=== PATIENT | male | born 1945 | race Caucasian/White ===

== ENCOUNTER 2016-02-20 16:56 | Emergency (ER) | payer MEDICARE ==
[2016-02-20 17:24] VITALS: BP 147/71; PULSE 81; RESP 16; TEMP 97.5
--- NOTE | 2016-02-20 18:59 | ED ---
Male Urogenital HPI - General Chief complaint: Urogenital Stated complaint: Blood in urine/Diarrhea Time Seen by Provider: 02/20/16 18:26 Source: patient Mode of arrival: ambulatory Limitations: no limitations - History of Present Illness Initial comments: 70-year-old male was at the restaurant started having urgency couldn't urinate pass some blood and then passed a large clot now he can't urinate well. Said trouble says having prostate cancer in 2001. He's had 2 episodes a hematuria one was secondary infection one was secondary to a cyst. His urologist as active, nose. Has had no reoccurrence in his cancer over these 14 years. He's had a previous history of coronary bypass atrial fibrillation was only on aspirin now is maintaining a sinus rhythm with soap 12 - Related Data Home Medications Medication Instructions Recorded Confirmed Albuterol Sulfate [Proair Hfa] 2 puff INHALATION RT-Q6H PRN 06/15/15 02/20/16 Aspirin EC [Ecotrin] 81 mg PO W/SUPPER 06/15/15 02/20/16 Atorvastatin [Lipitor] 40 mg PO HS 06/15/15 02/20/16 Beclomethasone Dipropionate [Qvar 1 puff INHALATION RT-HS 06/15/15 02/20/16 80 mcg/puff] Losartan Potassium [Cozaar] 25 mg PO QAM 06/15/15 02/20/16 Niacin 500 mg PO W/SUPPER 06/15/15 02/20/16 Sotalol [Betapace] 60 mg PO BID 06/15/15 02/20/16 Pantoprazole Sodium [Protonix] 20 mg PO Q48H 02/20/16 02/20/16 Previous Rx's Medication Instructions Recorded Sulfamethox-Tmp 800-160Mg [Bactrim 1 tab PO Q12HR #10 tab 02/20/16 DS 800-160 mg] Allergies Allergy/AdvReac Type Severity Reaction Status Date / Time No Known Allergies Allergy Verified 02/20/16 18:32 Review of Systems ROS Statement: Those systems with pertinent positive or pertinent negative responses have been documented in the HPI. ROS Other: All systems not noted in ROS Statement are negative. Constitutional: Denies: fever, chills Eyes: Denies: eye pain ENT: Denies: ear pain, throat pain Cardiovascular: Denies: chest pain Gastrointestinal: Denies: abdominal pain, nausea, vomiting Genitourinary: Reports: hematuria Skin: Denies: rash Neurological: Denies: headache Psychiatric: Denies: anxiety Hematological/Lymphatic: Denies: easy bleeding, easy bruising Past Medical History Past Medical History: Atrial Fibrillation, Asthma, Cancer, COPD, Hypertension, Prostate Disorder, Skin Disorder, Sleep Apnea/CPAP/BIPAP, Sleep Apnea/CPAP/BIPAP Additional Past Medical History / Comment(s): wound-ball area below great toe bottom of rt foot, hx asbestosis, hx prostate cancer with surgery, chemo and radiation, current herniated disc back History of Any Multi-Drug Resistant Organisms: None Reported Past Surgical History: Cardiac Ablation, Coronary Bypass/CABG, Heart Catheterization, Prostate Surgery Additional Past Surgical History / Comment(s): 2008 heart cath, cardiac ablation , quadruple cardiac bypass. Past Anesthesia/Blood Transfusion Reactions: No Reported Reaction Past Psychological History: No Psychological Hx Reported Smoking Status: Former smoker Past Alcohol Use History: Rare Additional Past Alcohol Use History / Comment(s): smoked 20 years <1ppd, stopped 20 years ago Past Drug Use History: None Reported - Past Family History Mother Family Medical History: No Reported History Father Family Medical History: Cancer General Exam Limitations: no limitations General appearance: alert, in no apparent distress Head exam: Present: atraumatic Eye exam: Present: PERRL, EOMI ENT exam: Present: normal oropharynx, mucous membranes moist, TM's normal bilaterally Respiratory exam: Present: normal lung sounds bilaterally Cardiovascular Exam: Present: normal rhythm, normal heart sounds GI/Abdominal exam: Present: soft. Absent: tenderness Neurological exam: Present: alert, CN II-XII intact Psychiatric exam: Present: normal affect, normal mood Skin exam: Present: warm, dry Course Vital Signs 02/20/16 17:21 Temperature 97.5 F L Pulse Rate 81 Respiratory 16 Rate Blood Pressure 147/71 O2 Sat by Pulse 94 L Oximetry Medical Decision Making - Lab Data Lab Results 02/20/16 Range/Units 18:54 Urine Color Yellow Urine Appearance Cloudy (Clear) Urine pH 5.5 (5.0-8.0) Ur Specific [place] 1.008 (1.001-1.035) Urine Protein 1+ H (Negative) Urine Glucose (UA) Negative (Negative) Urine Ketones Negative (Negative) Urine Blood Large H (Negative) Urine Nitrate Positive (Negative) Urine Bilirubin Negative (Negative) Urine Urobilinogen <2.0 (<2.0) mg/dL Ur Leukocyte Esterase Large H (Negative) Urine RBC 23 H (0-5) /hpf Urine WBC 140 H (0-5) /hpf Urine WBC Clumps Rare H (None) /hpf Ur Squamous Epith Cells <1 (0-4) /hpf Amorphous Sediment Rare H (None) /hpf Urine Bacteria Many H (None) /hpf Urine Mucus Occasional H (None) /hpf Disposition Clinical Impression: Gross hematuria, UTI (urinary tract infection) Disposition: HOME SELF-CARE Condition: Good Instructions: Hematuria (ED) Additional Instructions: Follow-up with his urologist, nose will need to have a cystoscopy and perhaps additional studies. Prescriptions: Sulfamethox-Tmp 800-160Mg [Bactrim DS 800-160 mg] 1 tab PO Q12HR #10 tab Referrals: Dima Nathan MD [Primary Care Provider] - 1-2 days Time of Disposition: 19:30
[2016-02-20 19:11] LABS: Amorphous Sediment,Urine Rare /hpf; Appearance,Urine Cloudy (Clear); Bacteria,Urine Many /hpf; Bilirubin,Urine Negative (Negative); Glucose,Urine (UA) Negative (Negative); Ketones,Urine Negative (Negative); Leukocyte Esterase,Urine Large (Negative); Mucus,Urine Occasional /hpf; Nitrite,Urine Positive (Negative); PH, Urine 5.5 (5.0-8.0); Particle Count 23574; Protein,Urine 1+ (Negative); RBC,Urine 23 /hpf (0-5); Specific Gravity,Urine 1.008 (1.001-1.035); Squamous Epithelial Cell,Urine <1 /hpf (0-4); UA Billing (MACRO vs. MICRO) MICRO; Urobilinogen,Urine <2.0 mg/dL (<2.0); WBC,Urine 140 /hpf (0-5)
== END 2016-02-20 19:44 | disposition home or self-care (01) ==
LOC: EC 16:56
DX: N39.0 Urinary tract infection, site not specified (principal); R31.0 Gross hematuria; J44.9 Chronic obstructive pulmonary disease, unspecified; J45.909 Unspecified asthma, uncomplicated; I10 Essential (primary) hypertension; Z95.1 Presence of aortocoronary bypass graft; I48.91 Unspecified atrial fibrillation; Z79.82 Long term (current) use of aspirin; Z85.46 Personal history of malignant neoplasm of prostate; Z79.899 Other long term (current) drug therapy; Z79.51 Long term (current) use of inhaled steroids; Z92.3 Personal history of irradiation; Z92.21 Personal history of antineoplastic chemotherapy; Z95.5 Presence of coronary angioplasty implant and graft; Z87.891 Personal history of nicotine dependence
CPT/HCPCS: 81001; 87077; 87086; 87186; 99284

== ENCOUNTER → 2016-05-10 | Outpatient (CLI) | payer MEDICARE ==
[2016-05-10 12:43] LABS: ALT 39 U/L (21-72); AST 39 U/L (17-59); Alkaline Phosphatase 97 U/L (38-126); Anion Gap 15 mmol/L; Blood Urea Nitrogen 20 mg/dL (9-20); Carbon Dioxide 26 mmol/L (22-30); Chloride 102 mmol/L (98-107); Cholesterol 110 mg/dL (<200); Glucose 114 mg/dL (74-99); HDL Cholesterol 39 mg/dL (40-60); Non-African American GFR(MDRD) >60 (>60 ml/min/1.73 sqM); Potassium 4.9 mmol/L (3.5-5.1); Sodium 143 mmol/L (137-145); Total Bilirubin 1.1 mg/dL (0.2-1.3); Triglycerides 130 mg/dL (<150)
[2016-05-10 12:57] LABS: Basophils % (A) 1 %; CH 32.8; CHCM 33.4; Eosinophils # (A) 0.3 k/uL (0-0.7); Eosinophils % (A) 4 %; HCT 45.2 % (39.0-53.0); HDW 2.71; HGB 15.4 gm/dL (13.0-17.5); Luc # (Auto) 0.26; Luc % (Auto) 4; Lymphocytes # (A) 1.5 k/uL (1.0-4.8); Lymphocytes % (A) 21 %; MCH 33.6 pg (25.0-35.0); MCHC 34.1 g/dL (31.0-37.0); MCV 98.8 fL (80.0-100.0); Mean Platelet Volume 7.1; Monocytes # (A) 0.5 k/uL (0-1.0); Monocytes % (A) 7 %; Neutrophils # (A) 4.7 k/uL (1.3-7.7); Neutrophils % (A) 64 %; RBC 4.58 m/uL (4.30-5.90); RDW 13.8 % (11.5-15.5); WBC 7.4 k/uL (3.8-10.6); WBC (Perox) 7.39
== END | disposition home or self-care (01) ==
LOC: LABWHC1 11:56
PROVIDERS: ATTEND Internal Medicine
DX: I10 Essential (primary) hypertension (principal); E78.2 Mixed hyperlipidemia
CPT/HCPCS: 36415; 80053; 80061; 85025

== ENCOUNTER → 2017-05-10 | Outpatient (CLI) | payer MEDICARE ==
[2017-05-10 13:24] LABS: Basophils % (A) 1 %; Eosinophils # (A) 0.2 k/uL (0-0.7); Eosinophils % (A) 4 %; HCT 47.5 % (39.0-53.0); HGB 15.9 gm/dL (13.0-17.5); Lymphocytes # (A) 1.5 k/uL (1.0-4.8); Lymphocytes % (A) 22 %; MCH 32.4 pg (25.0-35.0); MCHC 33.5 g/dL (31.0-37.0); MCV 96.7 fL (80.0-100.0); Mean Platelet Volume 7.7; Monocytes # (A) 0.5 k/uL (0-1.0); Monocytes % (A) 7 %; Neutrophils # (A) 4.4 k/uL (1.3-7.7); Neutrophils % (A) 65 %; Platelet Count 141 k/uL (150-450); RBC 4.92 m/uL (4.30-5.90); RDW 13.5 % (11.5-15.5); WBC 6.9 k/uL (3.8-10.6)
[2017-05-10 13:36] LABS: ALT 33 U/L (21-72); AST 32 U/L (17-59); Albumin 4.5 g/dL (3.5-5.0); Alkaline Phosphatase 108 U/L (38-126); Anion Gap 14 mmol/L; Blood Urea Nitrogen 18 mg/dL (9-20); Calcium 9.9 mg/dL (8.4-10.2); Carbon Dioxide 25 mmol/L (22-30); Chloride 103 mmol/L (98-107); Cholesterol 99 mg/dL (<200); Glucose 96 mg/dL (74-99); HDL Cholesterol 36 mg/dL (40-60); LDL Cholesterol,Calculated 40 mg/dL (0-99); Potassium 4.8 mmol/L (3.5-5.1); Sodium 142 mmol/L (137-145); Total Bilirubin 1.1 mg/dL (0.2-1.3); Total Protein 7.5 g/dL (6.3-8.2); Triglycerides 116 mg/dL (<150)
== END | disposition home or self-care (01) ==
LOC: LABWHC1 09:37
PROVIDERS: ATTEND Internal Medicine
DX: E78.2 Mixed hyperlipidemia (principal); I10 Essential (primary) hypertension
CPT/HCPCS: 36415; 80053; 80061; 85025

== ENCOUNTER → 2018-03-21 | Outpatient (CLI) | payer MEDICARE ==
[2018-03-21 10:42] LABS: Basophils # (A) 0.1 k/uL (0-0.2); Basophils % (A) 1 %; Eosinophils # (A) 0.2 k/uL (0-0.7); Eosinophils % (A) 4 %; HCT 46.7 % (39.0-53.0); HGB 15.2 gm/dL (13.0-17.5); Lymphocytes # (A) 1.1 k/uL (1.0-4.8); Lymphocytes % (A) 20 %; MCH 32.6 pg (25.0-35.0); MCHC 32.6 g/dL (31.0-37.0); Mean Platelet Volume 7.3; Monocytes # (A) 0.4 k/uL (0-1.0); Monocytes % (A) 7 %; Neutrophils # (A) 3.8 k/uL (1.3-7.7); Neutrophils % (A) 67 %; Platelet Count 134 k/uL (150-450); RBC 4.67 m/uL (4.30-5.90); RDW 13.7 % (11.5-15.5); WBC 5.7 k/uL (3.8-10.6)
[2018-03-21 17:11] LABS: Albumin 4.5 g/dL (3.80-4.90); Albumin/Globulin Ratio 2.05 (1.60-3.17); Anion Gap 8.7 mmol/L (4.00-12.00); Calcium 8.4 mg/dL (8.7-10.3); Carbon Dioxide 28.3 mmol/L (21.6-31.8); Globulin 2.2 g/dL (1.6-3.3); LDL Cholesterol,Calculated 48.4 mg/dL (0.0-131.0); Total Bilirubin 0.7 mg/dL (0.2-1.2); Total Protein 6.7 g/dL (6.2-8.2); VLDL Calculation 21.6 mg/dL (5.00-40.00)
== END | disposition home or self-care (01) ==
LOC: LABWHC1 09:30
DX: E78.5 Hyperlipidemia, unspecified (principal); I10 Essential (primary) hypertension; I25.10 Atherosclerotic heart disease of native coronary artery without angina pectoris
CPT/HCPCS: 36415; 80053; 80061; 85025

== ENCOUNTER → 2019-02-27 | Outpatient (CLI) | payer MEDICARE ==
[2019-02-27 11:27] LABS: HCT 47.1 % (39.0-53.0); HGB 15.5 gm/dL (13.0-17.5); MCH 32.4 pg (25.0-35.0); MCHC 32.9 g/dL (31.0-37.0); MCV 98.5 fL (80.0-100.0); Mean Platelet Volume 7.9; Platelet Count 143 k/uL (150-450); RBC 4.78 m/uL (4.30-5.90); RDW 13.4 % (11.5-15.5)
[2019-02-27 16:38] LABS: African American GFR (CKD) 86.8 (60.0-200.0); Anion Gap 8.4 mmol/L (4.00-12.00); Calcium 9.5 mg/dL (8.7-10.3); Carbon Dioxide 28.6 mmol/L (21.6-31.8); Chol/HDL Ratio 3.47; LDL Cholesterol,Calculated 46.6 mg/dL (0.0-131.0); Non-African American GFR(CKD) 74.9 (60.0-200.0); Potassium 4.7 mmol/L (3.5-5.5); VLDL Calculation 27.4 mg/dL (5.00-40.00)
== END | disposition home or self-care (01) ==
LOC: LABWHC1 10:45
PROVIDERS: ATTEND Internal Medicine
DX: E78.5 Hyperlipidemia, unspecified (principal); Z51.81 Encounter for therapeutic drug level monitoring
CPT/HCPCS: 36415; 80048; 80061; 85027

== ENCOUNTER → 2020-03-01 | Outpatient (CLI) | payer MEDICARE ==
[2020-03-01 09:53] LABS: Basophils # (A) 0.1 k/uL (0-0.2); Basophils % (A) 1 %; Eosinophils # (A) 0.3 k/uL (0-0.7); Eosinophils % (A) 4 %; HCT 48.8 % (39.0-53.0); HGB 16.3 gm/dL (13.0-17.5); Lymphocytes # (A) 1.5 k/uL (1.0-4.8); Lymphocytes % (A) 20 %; MCH 32.7 pg (25.0-35.0); MCHC 33.4 g/dL (31.0-37.0); MCV 98.1 fL (80.0-100.0); Mean Platelet Volume 7.7; Monocytes # (A) 0.5 k/uL (0-1.0); Monocytes % (A) 7 %; Neutrophils % (A) 66 %; Platelet Count 156 k/uL (150-450); RBC 4.97 m/uL (4.30-5.90); RDW 13.6 % (11.5-15.5); WBC 7.5 k/uL (3.8-10.6)
[2020-03-01 18:25] LABS: African American GFR (CKD) 86.2 (60.0-200.0); Albumin 5.2 g/dL (3.80-4.90); Albumin/Globulin Ratio 2.36 (1.60-3.17); Anion Gap 7.7 mmol/L (4.00-12.00); Carbon Dioxide 30.3 mmol/L (21.6-31.8); Chol/HDL Ratio 3.77; Globulin 2.2 g/dL (1.6-3.3); LDL Cholesterol,Calculated 44.4 mg/dL (0.0-131.0); Non-African American GFR(CKD) 74.3 (60.0-200.0); Potassium 5.1 mmol/L (3.5-5.5); Total Protein 7.4 g/dL (6.2-8.2); VLDL Calculation 38.6 mg/dL (5.00-40.00)
== END | disposition home or self-care (01) ==
LOC: LABWHC1 09:05
PROVIDERS: ATTEND Internal Medicine
DX: E78.5 Hyperlipidemia, unspecified (principal); Z79.899 Other long term (current) drug therapy
CPT/HCPCS: 36415; 80053; 80061; 85025

== ENCOUNTER → 2020-12-06 | Outpatient (CLI) | payer MEDICARE ==
--- NOTE | 2020-12-06 11:08 | US ---
EXAMINATION TYPE: US duplex aorta DATE OF EXAM: 12/06/2020 COMPARISON: NONE CLINICAL HISTORY: Z13.6 Screening for Aortic Abdominal Aneurysm. EXAM MEASUREMENTS: Abdominal Aorta: Proximal: obscured by overlying midline bowel gas Mid: 1.8 x 2.1cm Distal: 1.6 x 1.8cm Rt. Iliac: 1.2 x 1.4cm Lt. Iliac: 0.9 x 1.4cm Grayscale, color Doppler and spectral Doppler imaging obtained of the aorta IMPRESSION: There are some limitations to the exam. No abdominal aortic aneurysm is evident.
== END | disposition home or self-care (01) ==
LOC: RADUSWWP 09:41
PROVIDERS: ATTEND Internal Medicine
DX: Z13.6 Encounter for screening for cardiovascular disorders (principal)
CPT/HCPCS: 93979

== ENCOUNTER → 2021-03-09 | Outpatient (CLI) | payer MEDICARE ==
[2021-03-09 15:42] LABS: African American GFR (CKD) 97.2 (60.0-200.0); Blood Urea Nitrogen 15.3 mg/dL (9.0-27.0); Calcium 9.7 mg/dL (8.7-10.3); Carbon Dioxide 26.6 mmol/L (20.0-27.5); Chloride 101 mmol/L (96-109); Chol/HDL Ratio 3.07 Ratio; Glucose 99 mg/dL (70-110); Non-African American GFR(CKD) 83.8 (60.0-200.0); Potassium 4.7 mmol/L (3.5-5.5); Sodium 140 mmol/L (135-145)
== END | disposition home or self-care (01) ==
LOC: LABWHC1 10:25
PROVIDERS: ATTEND Internal Medicine
DX: E78.5 Hyperlipidemia, unspecified (principal)
CPT/HCPCS: 36415; 80048; 80061

== ENCOUNTER → 2022-05-26 | Outpatient (CLI) | payer MEDICARE ==
--- NOTE | 2022-05-26 11:42 | XR ---
EXAMINATION TYPE: XR foot complete RT DATE OF EXAM: 05/26/2022 COMPARISON: 06/17/2015 HISTORY: Callus under first toe TECHNIQUE: 3 view right foot FINDINGS: No acute fracture or dislocation is evident. There may be an old fracture of the lateral pr oximal phalanx second digit with nonunion. Plantar and Achilles tendon calcaneal heel spurs are prese nt. No suspicious cortical erosion is evident. There are follow-up examination can be performed as clinic ally indicated. IMPRESSION: 1. No acute osseous abnormality. 2. Calcaneal heel spurs
== END | disposition home or self-care (01) ==
LOC: RADXRMAIN 11:13
PROVIDERS: ATTEND Podiatrist
DX: L97.512 Non-pressure chronic ulcer of other part of right foot with fat layer exposed (principal); I73.9 Peripheral vascular disease, unspecified; E11.40 Type 2 diabetes mellitus with diabetic neuropathy, unspecified; M77.31 Calcaneal spur, right foot; M77.32 Calcaneal spur, left foot

== ENCOUNTER → 2022-08-21 | Outpatient (CLI) | payer MEDICARE ==
[2022-08-21 16:17] LABS: ALT 23 U/L (10-49); AST 26 U/L (14-35); Albumin 4.5 d/dL (3.8-4.9); Alkaline Phosphatase 107 U/L (41-126); Blood Urea Nitrogen 20.3 mg/dL (9.0-27.0); Calcium 9.7 mg/dL (8.7-10.3); Carbon Dioxide 26.3 mmol/L (21.6-31.8); Chloride 104 mmol/L (96-109); Globulin 2.5 d/dL (1.6-3.3); Glucose 92 mg/dL (70-110); Potassium 4.8 mmol/L (3.5-5.5); Sodium 141 mmol/L (135-145); Total Bilirubin 0.8 mg/dL (0.3-1.2)
== END | disposition home or self-care (01) ==
LOC: LABWHC1 12:45
PROVIDERS: ATTEND Internal Medicine
DX: E11.9 Type 2 diabetes mellitus without complications (principal)
CPT/HCPCS: 36415; 80053; 83036

== ENCOUNTER 2023-05-01 10:45 | Emergency (ER) | payer MEDICARE ==
--- NOTE | 2023-05-01 11:24 | ED ---
Male Urogenital HPI - General Chief complaint: Urogenital Stated complaint: kidney stone Time Seen by Provider: 05/01/23 10:55 Source: patient, family, RN notes reviewed Mode of arrival: ambulatory Limitations: no limitations - History of Present Illness Initial comments: This is a 77-year-old male who presents to the emergency department for urinary retention. Patient states that when he woke up this morning, he was unable to urinate. He has since tried several times without any relief. He has only gotten out a few drops of blood. This did happen to him once several years ago and it was due to a kidney stone. He is developing substantial pain in the suprapubic region due to being unable to urinate. Denies any back pain, nausea, or vomiting. States that prior to this morning he felt fine. - Related Data Home Medications Medication Instructions Recorded Confirmed Albuterol Sulfate [Proair Hfa] 2 puff INHALATION RT-Q6H PRN 06/15/15 02/20/16 Aspirin EC [Ecotrin] 81 mg PO W/SUPPER 06/15/15 02/20/16 Atorvastatin [Lipitor] 40 mg PO HS 06/15/15 02/20/16 Beclomethasone Dipropionate [Qvar 1 puff INHALATION RT-HS 06/15/15 02/20/16 80 mcg/puff] Losartan Potassium [Cozaar] 25 mg PO QAM 06/15/15 02/20/16 Niacin 500 mg PO W/SUPPER 06/15/15 02/20/16 Sotalol [Betapace] 60 mg PO BID 06/15/15 02/20/16 Pantoprazole Sodium [Protonix] 20 mg PO Q48H 02/20/16 02/20/16 Previous Rx's Medication Instructions Recorded Sulfamethox-Tmp 800-160Mg [Bactrim 1 tab PO Q12HR #10 tab 02/20/16 DS 800-160 mg] cefUROXime axetiL [Ceftin] 500 mg PO BID 7 Days #14 tab 05/01/23 oxyBUTYnin chloride [Ditropan] 5 mg PO BID #20 tab 05/01/23 Allergies Allergy/AdvReac Type Severity Reaction Status Date / Time No Known Allergies Allergy Verified 05/02/23 13:43 Review of Systems ROS Statement: Those systems with pertinent positive or pertinent negative responses have been documented in the HPI. ROS Other: All systems not noted in ROS Statement are negative. Past Medical History Past Medical History: Atrial Fibrillation, Asthma, Cancer, COPD, Hypertension, Prostate Disorder, Skin Disorder, Sleep Apnea/CPAP/BIPAP, Sleep Apnea/CPAP/BIPAP Additional Past Medical History / Comment(s): wound-ball area below great toe bottom of rt foot, hx asbestosis, hx prostate cancer with surgery, chemo and ra diation, current herniated disc back History of Any Multi-Drug Resistant Organisms: None Reported Past Surgical History: Cardiac Ablation, Coronary Bypass/CABG, Heart Catheterization, Prostate Surgery Additional Past Surgical History / Comment(s): 2008 heart cath, cardiac ablation, quadruple cardiac bypass. Past Anesthesia/Blood Transfusion Reactions: No Reported Reaction Past Psychological History: No Psychological Hx Reported Past Alcohol Use History: Rare Past Drug Use History: None Reported - Past Family History Mother Family Medical History: No Reported History Father Family Medical History: Cancer General Exam Limitations: no limitations General appearance: alert, in no apparent distress Head exam: Present: atraumatic, normocephalic, normal inspection Respiratory exam: Present: normal lung sounds bilaterally. Absent: respiratory distress, wheezes, rales, rhonchi, stridor Cardiovascular Exam: Present: regular rate, normal rhythm, normal heart sounds. Absent: systolic murmur, diastolic murmur, rubs, gallop, clicks GI/Abdominal exam: Present: soft, tenderness (suprapubic), normal bowel sounds. Absent: distended Neurological exam: Present: alert, oriented X3, CN II-XII intact Psychiatric exam: Present: normal affect, normal mood Skin exam: Present: warm, dry, intact, normal color. Absent: rash Course Vital Signs 05/01/23 05/01/23 05/01/23 10:46 13:21 18:00 Temperature 97.8 F 97.9 F Pulse Rate 107 H 100 98 Respiratory 20 16 18 Rate Blood Pressure 144/83 106/53 110/68 O2 Sat by Pulse 95 95 98 Oximetry Medical Decision Making - Medical Decision Making This is a 77 year old male who presents to the emergency department for urinary retention. Was pt. sent in by a medical professional or institution? @ -No Did you speak to anyone other than the patient for history? @ -No Did you review nursing and triage notes? @ -Yes, and I agree, it is accurate with regards to the patient's symptoms. Were old charts reviewed? @ -No Differential Diagnosis? @ -Differential Urinary Retention: Obstruction, UTI, neurological issue, this is not meant to be an all-inclusive list. EKG interpreted by me (3pts min.)? @ -Not obtained X-rays interpreted by me (1pt min.)? @ -Not obtained CT interpreted by me (1pt min.)? @ -CT scan of the abdomen and pelvis obtained. My interpretation identifies blood in the bladder. U/S interpreted by me (1pt. min.)? @ -US of the bladder obtained. My interpretation was unable to identify the Rosales catheter. What testing was considered but not performed? (CT, X-rays, U/S, labs)? Why? @ -None What meds were considered but not given? Why? @ -None Did you discuss the management of the patient with other professionals? @ -No Did you reconcile home meds? @ -No Was smoking cessation discussed for >3mins.? @ -No Was critical care preformed (if so, how long)? @ -No Were there social determinants of health that impacted care today? How? (Homelessness, low income, unemployed, alcoholism, drug addiction, transpo rtation, low edu. Level, literacy, decrease access to med. care, alf, rehab)? @ -No Was there de-escalation of care discussed even if they declined? (Discuss DNR or withdrawal of care, Hospice)? @ -No What co-morbidities impacted this encounter? (DM, HTN, Smoking, COPD, CAD, Cancer, CVA, Hep., AIDS, mental health diagnosis, sleep apnea, morbid obesity)? @ -Prostate disorder, a-fib, HTN Was patient admitted / discharged? @ -Discharged. On arrival, patient tried multiple times to urinate on his own but was unable to do so. Bladder scan performed demonstrating 355 mL of urine. Patient was straight cathed for a urine sample. He did have urine output afterwards and had significant improvement in his pain. Given his history of calculi contributing to obstruction, we obtained a CT scan of the abdomen and pelvis. No obstructing calculus was identified, however the Rosales catheter was noted to be in the urethra where the bulb was inflated. However, even with the incorrect positioning, the Rosales was still draining. Patient did however start to have some return of pain. We had ultrasound work with nursing staff, and they were unable to confirm placement of the Rosales catheter. This was subseq uently removed and reinserted and 600 mL of urine output was obtained. Patient again had improvement of pain once the urine was drained. Patient given a prescription for Ditropan with regards to the bladder spasms. Will also start the patient on antibiotics given the elevated white blood cells in his urine. Ceftriaxone administered in the emergency department and he was given a prescription for Ceftin. Rosales catheter management was reviewed with the patient and his . He is advised to hold his Eliquis and contact his nail puller with regards to how long he can safely stop it. He is also advised to contact the urologist for a follow-up appointment. Discussed with the patient that given the extensive amount of blood, there is a chance of additional clots forming, causing blockage in the catheter. Patient and his were taught how to irrigate this at home if it were to recur. However, if this is not effective and he has no urine output, advised that he will likely need to return to the emergency department to have this managed. Patient discharged home in stable condition. Undiagnosed new problem with uncertain prognosis? @ -None Drug Therapy requiring intensive monitoring for toxicity (Heparin, Nitro, Insulin, Cardizem)? @ -None Were any procedures done? @ -None Diagnosis/symptom? @ -Hematuria, urinary retention Acute, or Chronic, or Acute on Chronic? @ -Acute Uncomplicated (without systemic symptoms) or Complicated (systemic symptoms)? @ -Uncomplicated Side effects of treatment? @ -None Exacerbation, Progression, or Severe Exacerbation] @ -Not applicable Poses a threat to life or bodily function? @ -No Return precautions reviewed in depth, the patient is instructed to return to the emergency department with any new, worsening, or concerning symptoms. Patient verbalized understanding. This case was discussed in detail with the attending ED physician, Dr. Chahal. Presentation, findings, and treatment plan discussed in detail as well. - Lab Data Result diagrams: 05/01/23 12:58 05/01/23 12:58 Lab Results 05/01/23 05/01/23 05/01/23 Range/Units 11:59 12:58 12:58 WBC 6.9 (3.8-10.6) k/uL RBC 4.29 L (4.30-5.90) m/uL Hgb 14.3 (13.0-17.5) gm/dL Hct 42.7 (39.0-53.0) % MCV 99.5 (80.0-100.0) fL MCH 33.2 (25.0-35.0) pg MCHC 33.4 (31.0-37.0) g/dL RDW 13.7 (11.5-15.5) % Plt Count 127 L (150-450) k/uL MPV 8.3 Neutrophils % 79 % Lymphocytes % 12 % Monocytes % 5 % Eosinophils % 2 % Basophils % 1 % Neutrophils # 5.5 (1.3-7.7) k/uL Lymphocytes # 0.8 L (1.0-4.8) k/uL Monocytes # 0.3 (0-1.0) k/uL Eosinophils # 0.1 (0-0.7) k/uL Basophils # 0.1 (0-0.2) k/uL PT 11.8 (10.0-12.5) sec INR 1.1 (<1.2) APTT 25.9 (22.0-30.0) sec Sodium (137-145) mmol/L Potassium (3.5-5.1) mmol/L Chloride (98-107) mmol/L Carbon Dioxide (22-30) mmol/L Anion Gap mmol/L BUN (9-20) mg/dL Creatinine (0.66-1.25) mg/dL Est GFR (CKD-EPI)AfAm (>60 ml/min/1.73 sqM) Est GFR (CKD-EPI)NonAf (>60 ml/min/1.73 sqM) Glucose (74-99) mg/dL Lactic Ac Sepsis Rflx Plasma Lactic Acid Osei (0.7-2.0) mmol/L Calcium (8.4-10.2) mg/dL Total Bilirubin (0.2-1.3) mg/dL AST (17-59) U/L ALT (4-49) U/L Alkaline Phosphatase (38-126) U/L Total Protein (6.3-8.2) g/dL Albumin (3.5-5.0) g/dL Urine Color Red Urine Appearance Bloody (Clear) Urine RBC >182 H (0-5) /hpf Urine WBC 66 H (0-5) /hpf 05/01/23 05/01/23 05/01/23 Range/Units 12:58 12:58 14:04 WBC (3.8-10.6) k/uL RBC (4.30-5.90) m/uL Hgb (13.0-17.5) gm/dL Hct (39.0-53.0) % MCV (80.0-100.0) fL MCH (25.0-35.0) pg MCHC (31.0-37.0) g/dL RDW (11.5-15.5) % Plt Count (150-450) k/uL MPV Neutrophils % % Lymphocytes % % Monocytes % % Eosinophils % % Basophils % % Neutrophils # (1.3-7.7) k/uL Lymphocytes # (1.0-4.8) k/uL Monocytes # (0-1.0) k/uL Eosinophils # (0-0.7) k/uL Basophils # (0-0.2) k/uL PT (10.0-12.5) sec INR (<1.2) APTT (22.0-30.0) sec Sodium 140 (137-145) mmol/L Potassium 4.5 (3.5-5.1) mmol/L Chloride 107 (98-107) mmol/L Carbon Dioxide 24 (22-30) mmol/L Anion Gap 9 mmol/L BUN 22 H (9-20) mg/dL Creatinine 0.90 (0.66-1.25) mg/dL Est GFR (CKD-EPI)AfAm >90 (>60 ml/min/1.73 sqM) Est GFR (CKD-EPI)NonAf 83 (>60 ml/min/1.73 sqM) Glucose 107 H (74-99) mg/dL Lactic Ac Sepsis Rflx Y Plasma Lactic Acid Osei 2.1 H* (0.7-2.0) mmol/L Calcium 9.5 (8.4-10.2) mg/dL Total Bilirubin 1.3 (0.2-1.3) mg/dL AST 27 (17-59) U/L ALT 24 (4-49) U/L Alkaline Phosphatase 104 (38-126) U/L Total Protein 7.0 (6.3-8.2) g/dL Albumin 4.3 (3.5-5.0) g/dL Urine Color Urine Appearance (Clear) Urine RBC (0-5) /hpf Urine WBC (0-5) /hpf 05/01/23 Range/Units 17:17 WBC (3.8-10.6) k/uL RBC (4.30-5.90) m/uL Hgb (13.0-17.5) gm/dL Hct (39.0-53.0) % MCV (80.0-100.0) fL MCH (25.0-35.0) pg MCHC (31.0-37.0) g/dL RDW (11.5-15.5) % Plt Count (150-450) k/uL MPV Neutrophils % % Lymphocytes % % Monocytes % % Eosinophils % % Basophils % % Neutrophils # (1.3-7.7) k/uL Lymphocytes # (1.0-4.8) k/uL Monocytes # (0-1.0) k/uL Eosinophils # (0-0.7) k/uL Basophils # (0-0.2) k/uL PT (10.0-12.5) sec INR (<1.2) APTT (22.0-30.0) sec Sodium (137-145) mmol/L Potassium (3.5-5.1) mmol/L Chloride (98-107) mmol/L Carbon Dioxide (22-30) mmol/L Anion Gap mmol/L BUN (9-20) mg/dL Creatinine (0.66-1.25) mg/dL Est GFR (CKD-EPI)AfAm (>60 ml/min/1.73 sqM) Est GFR (CKD-EPI)NonAf (>60 ml/min/1.73 sqM) Glucose (74-99) mg/dL Lactic Ac Sepsis Rflx Plasma Lactic Acid Osei 1.5 (0.7-2.0) mmol/L Calcium (8.4-10.2) mg/dL Total Bilirubin (0.2-1.3) mg/dL AST (17-59) U/L ALT (4-49) U/L Alkaline Phosphatase (38-126) U/L Total Protein (6.3-8.2) g/dL Albumin (3.5-5.0) g/dL Urine Color Urine Appearance (Clear) Urine RBC (0-5) /hpf Urine WBC (0-5) /hpf Disposition Clinical Impression: Hematuria, Urinary retention Disposition: HOME SELF-CARE Instructions (If sedation given, give patient instructions): Urinary Retention in Men (ED), Rosales Catheter Placement and Care (ED), Hematuria (ED), How to Change a Catheter Drainage Bag (DC) Additional Instructions: Return to the emergency department with any new, worsening, or concerning symptoms. Take the antibiotic as prescribed for 7 days. Stop taking your Eliquis and call your nail puller to see when they would like you to resume taking it. Usually this is until the bleeding resolves. Contact your urologist or the urologist locally regarding the Rosales catheter, and they will be in charge of when to remove it. You can take the Tylenol #3 every 4-6 hours as needed for pain. Follow up with your primary care provider in 1-2 days. Prescriptions: cefUROXime axetiL [Ceftin] 500 mg PO BID 7 Days #14 tab oxyBUTYnin chloride [Ditropan] 5 mg PO BID #20 tab Is patient prescribed a controlled substance at d/c from ED?: No Referrals: Ollie Garsia DO [Primary Care Provider] - 1-2 days Steven Rapp MD [STAFF PHYSICIAN] - 1-2 days Time of Disposition: 14:05
[2023-05-01 12:14] LABS: RBC,Urine >182 /hpf (0-5); WBC,Urine 66 /hpf (0-5)
[2023-05-01 12:16] LABS: Appearance,Urine Bloody (Clear)
[2023-05-01 12:17] LABS: Color,Urine Red
--- NOTE | 2023-05-01 12:34 | CT ---
EXAMINATION TYPE: CT abdomen pelvis wo con CT DLP: 1115.4 mGycm, Automated exposure control for dose reduction was used. DATE OF EXAM: 05/01/2023 12:23 PM COMPARISON: None CLINICAL INDICATION:Male, 77 years old with history of Suprapubic pain, urinary retention; Suprapubic pain and urinary retention. TECHNIQUE: Axial CT abdomen pelvis wo con;Sagittal and coronal reformats were created on a separate workstation. Contrast used: mL of , (none if empty) Oral contrast used: without Oral Contrast (none if empty) FINDINGS: LOWER CHEST: Partially visualized lingula subpleural nodule measuring 6 mm. ABDOMEN LIVER: Diffusely hypoattenuating parenchyma. GALLBLADDER AND BILE DUCTS: Layering increased densities within the lumen consistent with gallstones are present. PANCREAS: Unremarkable. SPLEEN: Unremarkable. ADRENAL GLANDS: Unremarkable. KIDNEYS AND URETERS: Nonobstructing right renal calculus measuring 3 mm. No left renal calculi. Left probable simple cyst. No obstructive uropathy. PELVIS BLADDER: Layering high density in the bladder lumen. Rosales catheter balloon is in the urethra near th e pubic symphysis approximately dictation 5.4 cm from the bladder. REPRODUCTIVE: Multiple surgical clips are seen around the prostate bed. ABDOMEN & PELVIS STOMACH AND BOWEL: No evidence of bowel obstruction. Scattered colonic diverticula. PERITONEUM/RETROPERITONEUM: No evidence of pneumoperitoneum or free fluid. Jovana mesentery in the upp er abdomen. VASCULATURE: No evidence of aortic aneurysm. MUSCULOSKELETAL: No acute osseous abnormalities LYMPH NODES: No gross evidence for lymphadenopathy. SOFT TISSUE/ABDOMINAL WALL: Fat-containing right inguinal hernia. IMPRESSION: 1. Rosales catheter bulb inflated in the urethra with layering blood product in the bladder lumen. Adv ancement up to at least 6 cm is recommended for proper placement. Consider urologic consultation. 2. Nonspecific Jovana mesentery which can be seen in setting of sclerosing panniculitis versus other etiologies. 3. Cholelithiasis. 4. Right nonobstructing 3 mm calculus. 5. Colonic diverticulosis. 6. Hepatic steatosis. Findings communicated to Dr. Michelle Dickerson, PAC on 05/01/2023 12:[address] Junior Howe.
[2023-05-01 13:30] LABS: Basophils # (A) 0.1 k/uL (0-0.2); Basophils % (A) 1 %; Eosinophils # (A) 0.1 k/uL (0-0.7); Eosinophils % (A) 2 %; HCT 42.7 % (39.0-53.0); HGB 14.3 gm/dL (13.0-17.5); Lymphocytes # (A) 0.8 k/uL (1.0-4.8); Lymphocytes % (A) 12 %; MCH 33.2 pg (25.0-35.0); MCHC 33.4 g/dL (31.0-37.0); MCV 99.5 fL (80.0-100.0); Mean Platelet Volume 8.3; Monocytes # (A) 0.3 k/uL (0-1.0); Monocytes % (A) 5 %; Neutrophils # (A) 5.5 k/uL (1.3-7.7); Neutrophils % (A) 79 %; Platelet Count 127 k/uL (150-450); RBC 4.29 m/uL (4.30-5.90); RDW 13.7 % (11.5-15.5); WBC 6.9 k/uL (3.8-10.6)
[2023-05-01 13:40] LABS: ALT 24 U/L (4-49); AST 27 U/L (17-59); African American GFR (CKD) >90 (>60 ml/min/1.73 sqM); Albumin 4.3 g/dL (3.5-5.0); Alkaline Phosphatase 104 U/L (38-126); Anion Gap 9 mmol/L; Blood Urea Nitrogen 22 mg/dL (9-20); Calcium 9.5 mg/dL (8.4-10.2); Carbon Dioxide 24 mmol/L (22-30); Chloride 107 mmol/L (98-107); Glucose 107 mg/dL (74-99); Non-African American GFR(CKD) 83 (>60 ml/min/1.73 sqM); Potassium 4.5 mmol/L (3.5-5.1); Sodium 140 mmol/L (137-145); Total Bilirubin 1.3 mg/dL (0.2-1.3)
[2023-05-01 13:41] LABS: INR 1.1 (<1.2); Partial Thromboplastin Time 25.9 sec (22.0-30.0); Prothrombin Time 11.8 sec (10.0-12.5)
[2023-05-01] MEDS: cefTRIAXone IN SWFI 1,000 MG/10 ML SYRINGE IVP STA (14:37)
[2023-05-01] MEDS: HYDROcodone/APAP 5-325MG 1 EACH TAB PO STA (15:13)
[2023-05-01] MEDS: oxyBUTYnin chloride 5 MG TAB PO STA (15:13)
--- NOTE | 2023-05-01 16:25 | US ---
EXAMINATION TYPE: US bladder DATE OF EXAM: 05/01/2023 COMPARISON: NONE CLINICAL INDICATION: Male, 77 years old with history of Bladder pain, confirm Rosales placement; Patien t to be sent home with catheter but upon catheter placement blood was seen in urine TECHNIQUE: Real-time sector scanning sonography is performed over the pelvis. FINDINGS: ? Rosales not within bladder, had nurse retrograde fill the bladder with 120 cc of fluid and no change was seen. No fluid is identified adjacent to the Rosales catheter. Catheter within urinary bladder is not confirm ed this time. IMPRESSION: 1. Urinary bladder not defined on this examination. Rosales catheter is identified
[2023-05-01] MEDS: ACET/COD 300 MG/30 MG STARTER PACK 6 TAB BTL PO STA (17:59)
[2023-05-01 18:15] VITALS: BP 110/68; PULSE 98; RESP 18; TEMP 97.9
== END 2023-05-01 18:06 | disposition home or self-care (01) ==
LOC: EC 10:45
DX: R33.9 Retention of urine, unspecified (principal); R31.9 Hematuria, unspecified
CPT/HCPCS: 51702; 99284; 96374; 36415; 80053; 83605; 85025; 85610; 85730; 81001; 87086; 76857; 74176; J0696

== ENCOUNTER 2023-05-02 13:12 | Emergency (ER) | payer MEDICARE ==
--- NOTE | 2023-05-02 14:20 | ED ---
Male Urogenital HPI - General Source: patient, family, RN notes reviewed, old records reviewed Mode of arrival: ambulatory Limitations: no limitations <Dori Miranda - Last Filed: 05/02/23 14:19> - General Source: patient, family, RN notes reviewed, old records reviewed Mode of arrival: ambulatory Limitations: no limitations <Magdy Chahal - Last Filed: 05/02/23 16:35> - General Chief complaint: Urogenital Stated complaint: Unable to Urinate Time Seen by Provider: 05/02/23 14:19 - History of Present Illness Initial comments: Quick note: Patient is a 77-year-old male presented to the ER with chief complaint of urinary catheter issues. Patient seen here yesterday for urinary retention. Patient states this morning he was not producing urine and his catheter was blocked. Bag is currently draining. Patient denies any complaints. (Dori Miranda) Patient is a pleasant 77-year-old male present to the emergency department with concerns for urinary retention. Patient had hematuria followed by urinary retention yesterday and was seen in the emergency department. Patient had catheter placement with resolution of discomfort. Patient has had continued blood. Patient has had retention again today despite catheter being in place. (Magdy Chahal) - Related Data Home Medications Medication Instructions Recorded Confirmed Albuterol Sulfate [Proair Hfa] 2 puff INHALATION RT-Q6H PRN 06/15/15 02/20/16 Aspirin EC [Ecotrin] 81 mg PO W/SUPPER 06/15/15 02/20/16 Atorvastatin [Lipitor] 40 mg PO HS 06/15/15 02/20/16 Beclomethasone Dipropionate [Qvar 1 puff INHALATION RT-HS 06/15/15 02/20/16 80 mcg/puff] Losartan Potassium [Cozaar] 25 mg PO QAM 06/15/15 02/20/16 Niacin 500 mg PO W/SUPPER 06/15/15 02/20/16 Sotalol [Betapace] 60 mg PO BID 06/15/15 02/20/16 Pantoprazole Sodium [Protonix] 20 mg PO Q48H 02/20/16 02/20/16 Previous Rx's Medication Instructions Recorded Sulfamethox-Tmp 800-160Mg [Bactrim 1 tab PO Q12HR #10 tab 02/20/16 DS 800-160 mg] Acetaminophen-Codeine 300-30mg 1 tab PO Q6H PRN 3 Days #12 tablet 05/01/23 [Tylenol w/codeine #3] cefUROXime axetiL [Ceftin] 500 mg PO BID 7 Days #14 tab 05/01/23 oxyBUTYnin chloride [Ditropan] 5 mg PO BID #20 tab 05/01/23 Allergies Allergy/AdvReac Type Severity Reaction Status Date / Time No Known Allergies Allergy Verified 05/02/23 13:43 Review of Systems ROS Other: All systems not noted in ROS Statement are negative. <Dori Miranda - Last Filed: 05/02/23 14:19> ROS Other: All systems not noted in ROS Statement are negative. Constitutional: Denies: fever Gastrointestinal: Denies: abdominal pain, vomiting Genitourinary: Reports: as per HPI, urgency, hematuria Musculoskeletal: Denies: back pain <Magdy Chahal - Last Filed: 05/02/23 16:35> ROS Statement: Those systems with pertinent positive or pertinent negative responses have been documented in the HPI. Past Medical History Past Medical History: Atrial Fibrillation, Asthma, Cancer, COPD, Hypertension, Prostate Disorder, Skin Disorder, Sleep Apnea/CPAP/BIPAP, Sleep Apnea/CPAP/BIPAP Additional Past Medical History / Comment(s): wound-ball area below great toe bottom of rt foot, hx asbestosis, hx prostate cancer with surgery, chemo and radiation, current herniated disc back History of Any Multi-Drug Resistant Organisms: None Reported Past Surgical History: Cardiac Ablation, Coronary Bypass/CABG, Heart Catheterization, Prostate Surgery Additional Past Surgical History / Comment(s): 2008 heart cath, cardiac ablation, quadruple cardiac bypass. Past Anesthesia/Blood Transfusion Reactions: No Reported Reaction Past Psychological History: No Psychological Hx Reported Smoking Status: Never smoker Past Alcohol Use History: Rare Past Drug Use History: None Reported - Past Family History Mother Family Medical History: No Reported History Father Family Medical History: Cancer <Dori Miranda - Last Filed: 05/02/23 14:19> General Exam Limitations: no limitations <Dori Miranda - Last Filed: 05/02/23 14:19> Limitations: no limitations General appearance: alert, in no apparent distress Head exam: Present: normocephalic Eye exam: Present: normal appearance Neck exam: Present: normal inspection Respiratory exam: Present: normal lung sounds bilaterally Cardiovascular Exam: Present: irregular rhythm GI/Abdominal exam: Present: soft. Absent: tenderness Extremities exam: Present: normal inspection Neurological exam: Present: alert Psychiatric exam: Present: normal affect, normal mood Skin exam: Present: normal color <Magdy Chahal - Last Filed: 05/02/23 16:35> - General Exam Comments Initial Comments: Visual Physical Exam Vital signs reviewed General: Well-appearing, nontoxic, no acute distress. Head: Normocephalic, atraumatic Eyes: PERRLA, EOMI ENT: Airway patent Chest: Nonlabored breathing Skin: No visual rash, normal skin tone Neuro: Alert and oriented 3 Musculoskeletal: No gross abnormalities (Dori Miranda) Course Vital Signs 05/02/23 13:38 Temperature 98.0 F Pulse Rate 85 Respiratory 20 Rate Blood Pressure 119/71 O2 Sat by Pulse 96 Oximetry Medical Decision Making <Dori Miranda - Last Filed: 05/02/23 14:19> <Magdy Chahal - Last Filed: 05/02/23 16:35> - Medical Decision Making I performed the quick note portion of this chart. Electronically signed by Dori Miranda PA-C (Dori Miranda) Was pt. sent in by a medical professional or institution (ALIZA Mcgrath, CIRCULATION SALES REPRESENTATIVE, urgent care, hospital, or care home...) When possible be specific @ -No Did you speak to anyone other than the patient for history (EMS, parent, family, police, friend...)? What history was obtained from this source @ - is present and helps provide history including onset of symptoms Did you review nursing and triage notes (agree or disagree)? Why? @ -I reviewed and agree with nursing and triage notes Were old charts reviewed (outside hosp., previous admission, EMS record, old EK G, old radiological studies, urgent care reports/EKG's, care home records)? Report findings @ -No old charts were reviewed Differential Diagnosis (chest pain, altered mental status, abdominal pain women, abdominal pain men, vaginal bleeding, weakness, fever, dyspnea, syncope, headache, dizziness, GI bleed, back pain, seizure, CVA, palpatations, mental health, musculoskeletal)? @ -Differential Abdominal Pain Men: Appendicitis, cholecystitis, diverticulosis, ischemic bowel, pancreatitis, hepatitis, UTI, gastroenteritis, AAA, incarcerated hernia, bowel obstruction, constipation, inflammatory bowel, hepatitis, peptic ulcer disease, splenic infarction, perforated viscus, testicular torsion, this is not meant to be an all-inclusive list EKG interpreted by me (3pts min.). @ -As above X-rays interpreted by me (1pt min.). @ -None done CT interpreted by me (1pt min.). @ -None done U/S interpreted by me (1pt. min.). @ -None done What testing was considered but not performed or refused? (CT, X-rays, U/S, labs)? Why? @ -Considered urinalysis however this was done yesterday What meds were considered but not given or refused? Why? @ -None Did you discuss the management of the patient with other professionals (professionals i.e. , PA, CIRCULATION SALES REPRESENTATIVE, lab, RT, psych nurse, social services designee, habilitation training specialist, teacher, district fire management officer, rn case manager hospice)? Give summary @ -No Was smoking cessation discussed for >3mins.? @ -No Was critical care preformed (if so, how long)? @ -No Were there social determinants of health that impacted care today? How? (Homelessness, low income, unemployed, alcoholism, drug addiction, transportation, low edu. Level, literacy, decrease access to med. care, half-way, rehab)? @ -No Was there de-escalation of care discussed even if they declined (Discuss DNR or withdrawal of care, Hospice)? DNR status @ -No What co-morbidities impacted this encounter? (DM, HTN, Smoking, COPD, CAD, Cancer, CVA, ARF, Chemo, Hep., AIDS, mental health diagnosis, sleep apnea, morbid obesity)? @ -None Was patient admitted / discharged? Hospital course, mention meds given and route, prescriptions, significant lab abnormalities, going to OR and other pertinent info. @ -Catheter flushed by nursing staff with resolution of symptoms. Patient and family are updated on results and plan. Patient has an appointment with his urologist on May 14 however is advised to get an earlier 1. Patient advised to hold anticoagulants for 24 to 48 hours and discussed this with his primary care physician. Undiagnosed new problem with uncertain prognosis? @ -No Drug Therapy requiring intensive monitoring for toxicity (Heparin, Nitro, Insulin, Cardizem)? @ -No Were any procedures done? @ -No Diagnosis/symptom? @ -Hematuria, urinary retention Acute, or Chronic, or Acute on Chronic? @ -Acute, acute Uncomplicated (without systemic symptoms) or Complicated (systemic symptoms)? @ -Default Side effects of treatment? @ -No Exacerbation, Progression, or Severe Exacerbation? @ -No Poses a threat to life or bodily function? How? (Chest pain, [place], [place], pneumonia, PE, COPD, DKA, ARF, appy, cholecystitis, CVA, Diverticulitis, Homicidal, Suicidal, threat to staff... and all critical care pts) @ -No (Magdy Chahal) Disposition <Dori Miranda - Last Filed: 05/02/23 14:19> Is patient prescribed a controlled substance at d/c from ED?: No Time of Disposition: 16:35 <Magdy Chahal - Last Filed: 05/02/23 16:35> Clinical Impression: Hematuria, Urinary retention Disposition: HOME SELF-CARE Condition: Stable Instructions (If sedation given, give patient instructions): Urinary Retention in Men (ED) Additional Instructions: Please do follow-up with primary care physician in the next 1 or 2 days for recheck. Please also follow-up with urology in the next 1 or 2 days for recheck. Return for not passing urine, discomfort or pain, fever, worsening or changing symptoms or any other concerns. Continue antibiotics. Hold anticoagulates for 24 to 48 hours and reassess this with your primary care physician Referrals: Ollie Garsia DO [Primary Care Provider] - 1-2 days Steven Rapp MD [STAFF PHYSICIAN] - 1-2 days
[2023-05-02 17:01] VITALS: BP 114/71; PULSE 94; RESP 22; TEMP 97
== END 2023-05-02 16:57 | disposition home or self-care (01) ==
LOC: EC 13:12
DX: R31.9 Hematuria, unspecified (principal); R33.9 Retention of urine, unspecified
CPT/HCPCS: 99283

== ENCOUNTER 2024-02-04 19:35 | Emergency (ER) | payer MEDICARE ==
--- NOTE | 2024-02-04 19:57 | ED ---
General Adult HPI - General Source: patient, RN notes reviewed Mode of arrival: ambulatory Limitations: no limitations <Kenyetta Rowley - Last Filed: 02/04/24 19:54> <Junior Sexton - Last Filed: 02/05/24 00:14> - General Stated complaint: Abnormal Labs Time Seen by Provider: 02/04/24 19:55 - History of Present Illness Initial comments: Quick note: 78-year-old male presents to the emergency department for evaluation of anemia. Patient reports that he was sent in by his primary care provider's office for hemoglobin of 7.1. He notes that he has had blood in his urine for 1 and half to 2 months. He notes that this is from radiation. 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 Patient does report exertional dyspnea and fatigue. 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 (Junior Sexton) - Related Data Home Medications Medication Instructions Recorded Confirmed Albuterol Sulfate [Proair Hfa] 2 puff INHALATION RT-Q6H PRN 06/15/15 02/20/16 Aspirin EC [Ecotrin] 81 mg PO W/SUPPER 06/15/15 02/20/16 Atorvastatin [Lipitor] 40 mg PO HS 06/15/15 02/20/16 Beclomethasone Dipropionate [Qvar 1 puff INHALATION RT-HS 06/15/15 02/20/16 80 mcg/puff] Losartan Potassium [Cozaar] 25 mg PO QAM 06/15/15 02/20/16 Niacin 500 mg PO W/SUPPER 06/15/15 02/20/16 Sotalol [Betapace] 60 mg PO BID 06/15/15 02/20/16 Pantoprazole Sodium [Protonix] 20 mg PO Q48H 02/20/16 02/20/16 Previous Rx's Medication Instructions Recorded Sulfamethox-Tmp 800-160Mg [Bactrim 1 tab PO Q12HR #10 tab 02/20/16 DS 800-160 mg] cefuroxime axetiL [Ceftin] 500 mg PO BID 7 Days #14 tab 05/01/23 oxyBUTYnin chloride [Ditropan] 5 mg PO BID #20 tab 05/01/23 Allergies Allergy/AdvReac Type Severity Reaction Status Date / Time No Known Allergies Allergy Verified 02/04/24 19:54 Review of Systems ROS Other: All systems not noted in ROS Statement are negative. <Kenyetta Rowley - Last Filed: 02/04/24 19:54> ROS Other: All systems not noted in ROS Statement are negative. <Junior Sexton Saeed - Last Filed: 02/05/24 00:14> ROS Statement: Those systems with pertinent positive or pertinent negative responses have been documented in the HPI. Past Medical History Past Medical History: Atrial Fibrillation, Asthma, Cancer, COPD, Hypertension, Prostate Disorder, Skin Disorder, Sleep Apnea/CPAP/BIPAP, Sleep Apnea/CPAP/BIPAP Additional Past Medical History / Comment(s): wound-ball area below great toe bottom of rt foot, hx asbestosis, hx prostate cancer with surgery, chemo and radiation, current herniated disc back History of Any Multi-Drug Resistant Organisms: None Reported Past Surgical History: Cardiac Ablation, Coronary Bypass/CABG, Heart Catheterization, Prostate Surgery Additional Past Surgical History / Comment(s): 2008 heart cath, cardiac ablation, quadruple cardiac bypass. Past Anesthesia/Blood Transfusion Reactions: No Reported Reaction Past Psychological History: No Psychological Hx Reported Smoking Status: Former smoker Past Alcohol Use History: Rare Past Drug Use History: None Reported - Past Family History Mother Family Medical History: No Reported History Father Family Medical History: Cancer <Kenyetta Rowley - Last Filed: 02/04/24 19:54> General Exam Limitations: no limitations <Kenyetta Rowley - Last Filed: 02/04/24 19:54> General appearance: alert, in no apparent distress Head exam: Present: atraumatic, normocephalic Eye exam: Present: normal appearance, PERRL ENT exam: Present: normal exam Neck exam: Present: normal inspection. Absent: tenderness, meningismus Respiratory exam: Present: normal lung sounds bilaterally, decreased breath sounds. Absent: respiratory distress Cardiovascular Exam: Present: regular rate, irregular rhythm GI/Abdominal exam: Present: soft. Absent: distended, tenderness, guarding Neurological exam: Present: alert, oriented X3, CN II-XII intact, normal gait, motor sensory deficit Psychiatric exam: Present: normal affect, normal mood Skin exam: Present: pallor <Junior Sexton - Last Filed: 02/05/24 00:14> - General Exam Comments Initial Comments: Visual Physical Exam Vital signs reviewed General: Well-appearing, nontoxic, no acute distress. Head: Normocephalic, atraumatic Eyes: PERRLA, EOMI ENT: Airway patent Chest: Nonlabored breathing Skin: No visual rash, pallorous Neuro: Alert and oriented 3 Musculoskeletal: No gross abnormalities (Kenyetta Rowley) Course Vital Signs 02/04/24 02/04/24 02/04/24 19:52 22:50 23:00 Temperature 98.8 F 98.6 F 98.4 F Pulse Rate 106 H 80 89 Respiratory 18 18 18 Rate Blood Pressure 93/57 118/64 126/68 O2 Sat by Pulse 98 96 95 Oximetry 02/04/24 02/04/24 02/04/24 23:10 23:20 23:30 Temperature 98.5 F 98.4 F 98.4 F Pulse Rate 80 78 80 Respiratory 18 18 18 Rate Blood Pressure 126/68 118/77 121/73 O2 Sat by Pulse 96 Oximetry 02/04/24 02/05/24 23:45 00:00 Temperature 98.5 F 98.2 F Pulse Rate 85 Respiratory 18 18 Rate Blood Pressure 126/72 114/62 O2 Sat by Pulse 97 95 Oximetry Medical Decision Making <Kenyetta Rowley - Last Filed: 02/04/24 19:54> - Lab Data Result diagrams: 02/04/24 20:39 02/04/24 20:39 <Junior Sexton - Last Filed: 02/05/24 00:14> - Medical Decision Making Quick note preformed and electronically signed by Kenyetta Rowley PA-C (Kenyetta Rowley) Was pt. sent in by a medical professional or institution (ALIZA Mcgrath, WELDING MANAGER, urgent care, hospital, or alf...) When possible be specific @ -No Did you speak to anyone other than the patient for history (EMS, parent, family, police, friend...)? What history was obtained from this source @ -No Did you review nursing and triage notes (agree or disagree)? Why? @ -I reviewed and agree with nursing and triage notes Were old charts reviewed (outside hosp., previous admission, EMS record, old EKG, old radiological studies, urgent care reports/EKG's, alf records)? 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 @ -[Atrial fibrillation, rate of 92, QRS duration 161, QTc [address] segment el evation. Right bundle branch block. X-rays interpreted by me (1pt min.). @ -None done CT interpreted by me (1pt min.). @ -None done U/S interpreted by me (1pt. min.). @ -None done What testing was considered but not performed or refused? (CT, X-rays, U/S, labs)? Why? @ -None What meds were considered but not given or refused? Why? @ -None Did you discuss the management of the patient with other professionals (professionals i.e. , PA, WELDING MANAGER, lab, RT, psych nurse, clinical social work aide, human intelligence, teacher, medical scientific officer, returned case inspector)? Give summary @ -No Was smoking cessation discussed for >3mins.? @ -No Was critical care preformed (if so, how long)? @ -No Were there social determinants of health that impacted care today? How? (Homelessness, low income, unemployed, alcoholism, drug addiction, transportation, low edu. Level, literacy, decrease access to med. care, custodial, rehab)? @ -No Was there de-escalation of care discussed even if they declined (Discuss DNR or withdrawal of care, Hospice)? DNR status @ -No What co-morbidities impacted this encounter? (DM, HTN, Smoking, COPD, CAD, [place] cer, CVA, ARF, Chemo, Hep., AIDS, mental health diagnosis, sleep apnea, morbid obesity)? @ -Anemia secondary to hemorrhagic cystitis Was patient admitted / discharged? Hospital course, mention meds given and route, prescriptions, significant lab abnormalities, going to OR and other pertinent info. @ -[78-year-old male with anemia sent in from [facility] for blood transfusion. Hemoglobin is 6.6 requiring 1 unit of packed RBCs. Patient otherwise well- appearing the remainder of his laboratory testing is otherwise unremarkable. Patient has good outpatient follow-up and is planned to receive hyperbaric treatment for his ongoing cystitis. He has a urologist that he follows with regularly. Undiagnosed new problem with uncertain prognosis? @ -No Drug Therapy requiring intensive monitoring for toxicity (Heparin, Nitro, Insulin, Cardizem)? @ -No Were any procedures done? @ -No Diagnosis/symptom? @Anemia Acute, or Chronic, or Acute on Chronic? @ -[Acute on chronic Uncomplicated (without systemic symptoms) or Complicated (systemic symptoms)? @ -Default Side effects of treatment? @ -No Exacerbation, Progression, or Severe Exacerbation? @ -No Poses a threat to life or bodily function? How? (Chest pain, [place], [place], pneumonia, PE, COPD, DKA, ARF, appy, cholecystitis, CVA, Diverticulitis, Homicidal, Suicidal, threat to staff... and all critical care pts) @ -Anemia, hemorrhagic shock (Junior Sexton) - Lab Data Lab Results 02/04/24 02/04/24 02/04/24 Range/Units 20:30 20:39 20:39 WBC 7.6 (3.8-10.6) k/uL RBC 2.28 L (4.30-5.90) m/uL Hgb 6.6 L* (13.0-17.5) gm/dL Hct 20.9 L (39.0-53.0) % MCV 91.7 (80.0-100.0) fL MCH 28.9 (25.0-35.0) pg MCHC 31.5 (31.0-37.0) g/dL RDW 16.4 H (11.5-15.5) % Plt Count 184 (150-450) k/uL MPV 8.1 Neutrophils % 68 % Lymphocytes % 18 % Monocytes % 8 % Eosinophils % 3 % Basophils % 0 % Neutrophils # 5.1 (1.3-7.7) k/uL Lymphocytes # 1.4 (1.0-4.8) k/uL Monocytes # 0.6 (0-1.0) k/uL Eosinophils # 0.2 (0-0.7) k/uL Basophils # 0.0 (0-0.2) k/uL Hypochromasia Marked Poikilocytosis Slight Anisocytosis Slight PT 11.9 (10.0-12.5) sec INR 1.1 (<1.2) APTT 22.8 (22.0-30.0) sec Sodium (137-145) mmol/L Potassium (3.5-5.1) mmol/L Chloride (98-107) mmol/L Carbon Dioxide (22-30) mmol/L Anion Gap mmol/L BUN (9-20) mg/dL Creatinine (0.66-1.25) mg/dL Est GFR (CKD-EPI)AfAm (>60 ml/min/1.73 sqM) Est GFR (CKD-EPI)NonAf (>60 ml/min/1.73 sqM) Glucose (74-99) mg/dL Calcium (8.4-10.2) mg/dL Magnesium (1.6-2.3) mg/dL Total Bilirubin (0.2-1.3) mg/dL AST (17-59) U/L ALT (4-49) U/L Alkaline Phosphatase (38-126) U/L Total Protein (6.3-8.2) g/dL Albumin (3.5-5.0) g/dL Blood Type A Negative Blood Type Confirm Blood Type Recheck No Previous Record Bld Type Recheck Status CABO Indicated Antibody Screen NEGATIVE Crossmatch See Detail Spec Expiration Date 02/07/2024232902/04/24 02/04/24 Range/Units 20:39 20:59 WBC (3.8-10.6) k/uL RBC (4.30-5.90) m/uL Hgb (13.0-17.5) gm/dL Hct (39.0-53.0) % MCV (80.0-100.0) fL MCH (25.0-35.0) pg MCHC (31.0-37.0) g/dL RDW (11.5-15.5) % Plt Count (150-450) k/uL MPV Neutrophils % % Lymphocytes % % Monocytes % % Eosinophils % % Basophils % % Neutrophils # (1.3-7.7) k/uL Lymphocytes # (1.0-4.8) k/uL Monocytes # (0-1.0) k/uL Eosinophils # (0-0.7) k/uL Basophils # (0-0.2) k/uL Hypochromasia Poikilocytosis Anisocytosis PT (10.0-12.5) sec INR (<1.2) APTT (22.0-30.0) sec Sodium 138 (137-145) mmol/L Potassium 4.2 (3.5-5.1) mmol/L Chloride 104 (98-107) mmol/L Carbon Dioxide 20 L (22-30) mmol/L Anion Gap 14 mmol/L BUN 25 H (9-20) mg/dL Creatinine 1.22 (0.66-1.25) mg/dL Est GFR (CKD-EPI)AfAm 66 (>60 ml/min/1.73 sqM) Est GFR (CKD-EPI)NonAf 57 (>60 ml/min/1.73 sqM) Glucose 94 (74-99) mg/dL Calcium 9.0 (8.4-10.2) mg/dL Magnesium 2.2 (1.6-2.3) mg/dL Total Bilirubin 0.6 (0.2-1.3) mg/dL AST 23 (17-59) U/L ALT 14 (4-49) U/L Alkaline Phosphatase 91 (38-126) U/L Total Protein 6.6 (6.3-8.2) g/dL Albumin 4.1 (3.5-5.0) g/dL Blood Type Blood Type Confirm A Negative Blood Type Recheck Bld Type Recheck Status Antibody Screen Crossmatch Spec Expiration Date Disposition <Kenyetta Rowley - Last Filed: 02/04/24 19:54> Is patient prescribed a controlled substance at d/c from ED?: No Time of Disposition: 00:14 <Junior Sexton - Last Filed: 02/05/24 00:14> Clinical Impression: Anemia Disposition: HOME SELF-CARE Condition: Fair Instructions (If sedation given, give patient instructions): Anemia (ED) Referrals: Ollie Garsia DO [Primary Care Provider] - 1-2 days
[2024-02-04 20:53] LABS: Anisocytosis Slight; Basophils % (A) 0 %; Eosinophils # (A) 0.2 k/uL (0-0.7); Eosinophils % (A) 3 %; HCT 20.9 % (39.0-53.0); Hypochromasia Marked; Lymphocytes # (A) 1.4 k/uL (1.0-4.8); Lymphocytes % (A) 18 %; MCH 28.9 pg (25.0-35.0); MCHC 31.5 g/dL (31.0-37.0); MCV 91.7 fL (80.0-100.0); Mean Platelet Volume 8.1; Monocytes # (A) 0.6 k/uL (0-1.0); Monocytes % (A) 8 %; Neutrophils # (A) 5.1 k/uL (1.3-7.7); Neutrophils % (A) 68 %; Platelet Count 184 k/uL (150-450); Poikilocytosis Slight; RBC 2.28 m/uL (4.30-5.90); RDW 16.4 % (11.5-15.5); WBC 7.6 k/uL (3.8-10.6)
[2024-02-04 20:57] LABS: HGB 6.6 gm/dL (13.0-17.5)
[2024-02-04 21:05] LABS: ALT 14 U/L (4-49); AST 23 U/L (17-59); African American GFR (CKD) 66 (>60 ml/min/1.73 sqM); Albumin 4.1 g/dL (3.5-5.0); Alkaline Phosphatase 91 U/L (38-126); Anion Gap 14 mmol/L; Blood Urea Nitrogen 25 mg/dL (9-20); Carbon Dioxide 20 mmol/L (22-30); Chloride 104 mmol/L (98-107); Glucose 94 mg/dL (74-99); Magnesium 2.2 mg/dL (1.6-2.3); Non-African American GFR(CKD) 57 (>60 ml/min/1.73 sqM); Potassium 4.2 mmol/L (3.5-5.1); Sodium 138 mmol/L (137-145); Total Bilirubin 0.6 mg/dL (0.2-1.3); Total Protein 6.6 g/dL (6.3-8.2)
[2024-02-04 21:11] LABS: INR 1.1 (<1.2); Partial Thromboplastin Time 22.8 sec (22.0-30.0); Prothrombin Time 11.9 sec (10.0-12.5)
[2024-02-05 01:19] VITALS: RESP 20
[2024-02-05 01:47] VITALS: BP 128/72; PULSE 80; TEMP 98.1
== END 2024-02-05 01:47 | disposition home or self-care (01) ==
LOC: EC 19:35
DX: D64.9 Anemia, unspecified (principal); Z87.891 Personal history of nicotine dependence
CPT/HCPCS: 36415; 93005; 86900; 86901; 80053; 83735; 85025; 85610; 85730; 86850; 86920; 99285; 36430; P9016; 96374

== ENCOUNTER → 2024-02-04 | Outpatient (CLI) | payer MEDICARE ==
[2024-02-04 14:23] LABS: Anisocytosis Slight; Basophils % (A) 0 %; Eosinophils # (A) 0.1 k/uL (0-0.7); Eosinophils % (A) 2 %; HCT 22.2 % (39.0-53.0); HGB 7.1 gm/dL (13.0-17.5); Hypochromasia Marked; Lymphocytes # (A) 1.2 k/uL (1.0-4.8); Lymphocytes % (A) 17 %; MCH 29.9 pg (25.0-35.0); MCHC 31.9 g/dL (31.0-37.0); MCV 93.7 fL (80.0-100.0); Mean Platelet Volume 8.6; Monocytes # (A) 0.5 k/uL (0-1.0); Monocytes % (A) 7 %; Neutrophils # (A) 4.9 k/uL (1.3-7.7); Neutrophils % (A) 71 %; Platelet Count 186 k/uL (150-450); Poikilocytosis Slight; RBC 2.36 m/uL (4.30-5.90); RDW 16.3 % (11.5-15.5); WBC 6.9 k/uL (3.8-10.6)
[2024-02-04 19:51] LABS: % Iron Saturation 3.73 (15.00-50.00); BUN/Creat Ratio 16.82 Ratio (12.00-20.00); Blood Urea Nitrogen 18.5 mg/dL (9.0-27.0); Carbon Dioxide 22.1 mmol/L (21.6-31.8); Chloride 104 mmol/L (96-109); Chol/HDL Ratio 2.39 Ratio; Glucose 96 mg/dL (70-110); Iron 18 UG/DL (65-175); LDL Cholesterol,Calculated 29.2 mg/dL (0.0-131.0); Magnesium 2.1 mg/dL (1.5-2.4); Potassium 4.8 mmol/L (3.5-5.5); Sodium 138 mmol/L (135-145); Total Iron Binding Capacity 483 UG/DL (228-460); VLDL Calculation 16.08 mg/dL (5.00-40.00)
[2024-02-04 19:52] LABS: ALT 13 U/L (10-49); AST 20 U/L (14-35); Albumin 4.2 g/dL (3.8-4.9); Alkaline Phosphatase 111 U/L (41-126); Calcium 9.1 mg/dL (8.7-10.3); Ferritin 12.1 ng/mL (22.0-322.0); Globulin 2.8 g/dL (1.6-3.3); Total Bilirubin 0.7 mg/dL (0.3-1.2)
== END | disposition home or self-care (01) ==
LOC: LABWHC1 13:38
PROVIDERS: ATTEND Internal Medicine
DX: E11.9 Type 2 diabetes mellitus without complications (principal); D64.9 Anemia, unspecified
CPT/HCPCS: 36415; 80053; 80061; 82607; 82728; 82746; 83036; 83540; 83550; 83735; 84165; 84443; 85025; 86334

== ENCOUNTER 2024-02-08 22:09 | Emergency (ER) | payer MEDICARE ==
[2024-02-08 23:24] LABS: Anisocytosis Slight; Basophils # (A) 0.1 k/uL (0-0.2); Basophils % (A) 1 %; Eosinophils # (A) 0.2 k/uL (0-0.7); Eosinophils % (A) 3 %; HCT 22.6 % (39.0-53.0); HGB 7.3 gm/dL (13.0-17.5); Hypochromasia Marked; Lymphocytes # (A) 1.2 k/uL (1.0-4.8); Lymphocytes % (A) 17 %; MCH 29.1 pg (25.0-35.0); MCHC 32.1 g/dL (31.0-37.0); MCV 90.6 fL (80.0-100.0); Mean Platelet Volume 7.8; Monocytes # (A) 0.6 k/uL (0-1.0); Monocytes % (A) 9 %; Neutrophils # (A) 4.7 k/uL (1.3-7.7); Neutrophils % (A) 67 %; Platelet Count 198 k/uL (150-450); Poikilocytosis Slight; RDW 17.1 % (11.5-15.5); WBC 6.9 k/uL (3.8-10.6)
--- NOTE | 2024-02-08 23:29 | ED ---
General Adult HPI - General Chief complaint: Urogenital Stated complaint: Blood Transfusion-sent by dr Cantrell Seen by Provider: 02/08/24 22:21 Source: patient Mode of arrival: ambulatory Limitations: no limitations - History of Present Illness Initial comments: Patient is a 78-year-old male with a past medical history of prostate cancer 2001 requiring radiation and postradiation cystitis presenting today for hemoglobin on outpatient labs and hematuria. Patient states that he began having hematuria over and has been having intermittent hematuria ever since. He was told by his oncologist that it is due to prior radiation. Was here Sunday due to low hemoglobin and received blood transfusion. Hematuria comes and goes, throughout the day today urine was "mostly clear" however this evening he began passing Nasim-Aid colored urine with few clots. He is not having difficulty urinating or lower abdominal pain at this point. Denies lightheadedness or dizziness endorses chronic shortness of breath, history asbestosis. Denies chest pain or flank pain. Denies fevers. States he always feels cold. He is currently being set up for hyperbaric oxygen in [place] for further treatment of his cystitis. - Related Data Home Medications Medication Instructions Recorded Confirmed Albuterol Sulfate [Proair Hfa] 2 puff INHALATION RT-Q6H PRN 06/15/15 02/20/16 Aspirin EC [Ecotrin] 81 mg PO W/SUPPER 06/15/15 02/20/16 Atorvastatin [Lipitor] 40 mg PO HS 06/15/15 02/20/16 Beclomethasone Dipropionate [Qvar 1 puff INHALATION RT-HS 06/15/15 02/20/16 80 mcg/puff] Losartan Potassium [Cozaar] 25 mg PO QAM 06/15/15 02/20/16 Niacin 500 mg PO W/SUPPER 06/15/15 02/20/16 Sotalol [Betapace] 60 mg PO BID 06/15/15 02/20/16 Pantoprazole Sodium [Protonix] 20 mg PO Q48H 02/20/16 02/20/16 Previous Rx's Medication Instructions Recorded Sulfamethox-Tmp 800-160Mg [Bactrim 1 tab PO Q12HR #10 tab 02/20/16 DS 800-160 mg] cefuroxime axetiL [Ceftin] 500 mg PO BID 7 Days #14 tab 05/01/23 oxyBUTYnin chloride [Ditropan] 5 mg PO BID #20 tab 05/01/23 Allergies Allergy/AdvReac Type Severity Reaction Status Date / Time No Known Allergies Allergy Verified 02/08/24 22:17 Review of Systems ROS Statement: Those systems with pertinent positive or pertinent negative responses have been documented in the HPI. ROS Other: All systems not noted in ROS Statement are negative. Past Medical History Past Medical History: Atrial Fibrillation, Asthma, Cancer, COPD, Hypertension, Prostate Disorder, Skin Disorder, Sleep Apnea/CPAP/BIPAP, Sleep Apnea/CPAP/BIPAP Additional Past Medical History / Comment(s): wound-ball area below great toe bottom of rt foot, hx asbestosis, hx prostate cancer with surgery, chemo and r adiation, current herniated disc back, cystitis History of Any Multi-Drug Resistant Organisms: None Reported Past Surgical History: Cardiac Ablation, Coronary Bypass/CABG, Heart Catheterization, Prostate Surgery Additional Past Surgical History / Comment(s): 2007 heart cath, cardiac ablation, quadruple cardiac bypass. Past Anesthesia/Blood Transfusion Reactions: No Reported Reaction Past Psychological History: No Psychological Hx Reported Smoking Status: Former smoker Past Alcohol Use History: Rare Past Drug Use History: None Reported - Past Family History Mother Family Medical History: No Reported History Father Family Medical History: Cancer General Exam Limitations: no limitations Course Vital Signs 02/08/24 02/09/24 02/09/24 22:12 01:44 02:15 Temperature 97.8 F 98.1 F Pulse Rate 93 811 H 82 Respiratory 22 20 Rate Blood Pressure 124/56 117/71 O2 Sat by Pulse 100 95 Oximetry 02/09/24 02/09/24 02/09/24 02:20 03:05 03:21 Temperature 98.2 F 98.1 F Pulse Rate 98 89 82 Respiratory 18 18 Rate Blood Pressure 126/68 123/63 O2 Sat by Pulse 96 96 Oximetry 02/09/24 02/09/24 02/09/24 03:41 04:25 04:33 Temperature 98.4 F 98.2 F 98.1 F Pulse Rate 82 89 84 Respiratory 18 18 20 Rate Blood Pressure 120/64 112/72 107/67 O2 Sat by Pulse 97 95 95 Oximetry Medical Decision Making - Medical Decision Making Was pt. sent in by a medical professional or institution (Dr., PA, SHOVEL MECHANIC, urgent ca re, hospital, or senior care...) When possible be specific @ -Patient was sent in by his PCP after outpatient labs this morning showed a hemoglobin of 6.9 Did you speak to anyone other than the patient for history (EMS, parent, family, police, friend...)? What history was obtained from this source @ -[No] Did you review nursing and triage notes (agree or disagree)? Why? @ -[I reviewed and agree with nursing and triage notes] Were old charts reviewed (outside hosp., previous admission, EMS record, old EKG, old radiological studies, urgent care reports/EKG's, senior care records)? Report findings @Medical records reviewed, hemoglobin this morning 6.9 Differential Diagnosis (chest pain, altered mental status, abdominal pain women, abdominal pain men, vaginal bleeding, weakness, fever, dyspnea, syncope, headache, dizziness, GI bleed, back pain, seizure, CVA, palpatations, mental health, musculoskeletal)? @ -[not applicable] EKG interpreted by me (3pts min.). @ -[As above] X-rays interpreted by me (1pt min.). @ -[None done] CT interpreted by me (1pt min.). @ -[None done] U/S interpreted by me (1pt. min.). @ -[None done] What testing was considered but not performed or refused? (CT, X-rays, U/S, labs)? Why? @ -[None] What meds were considered but not given or refused? Why? @ -[None] Did you discuss the management of the patient with other professionals (professionals i.e. ALIZA Mcgrath, SHOVEL MECHANIC, lab, RT, psych nurse, social media strategist, exercise scientist, teacher, chief executive officer, pillowcase turner)? Give summary @ -[No] Was smoking cessation discussed for >3mins.? @ -[No] Was critical care preformed (if so, how long)? @ -[No] Were there social determinants of health that impacted care today? How? (Homel essness, low income, unemployed, alcoholism, drug addiction, transportation, low edu. Level, literacy, decrease access to med. care, retirement, rehab)? @ -[No] Was there de-escalation of care discussed even if they declined (Discuss DNR or withdrawal of care, Hospice)? @ -[No] What co-morbidities impacted this encounter? (DM, HTN, Smoking, COPD, CAD, Cancer, CVA, ARF, Chemo, Hep., AIDS, mental health diagnosis, sleep apnea, morbid obesity)? @History of prostate cancer status post radiation, atrial fibrillation on Eliquis Was patient admitted / discharged? Hospital course, mention meds given and ro havasupai, prescriptions, significant lab abnormalities, going to OR and other pertinent info. @ -[hospital course] patient is a pleasant 78-year-old gentleman presenting today for low hemoglobin on outpatient labs secondary to hematuria. Patient sent in by his PCP. Vital signs within acceptable limits on arrival. He has some pale conjunctiva, otherwise is well-appearing and in no acute distress. Bi lateral 1+ lower extremity edema. Scant wheezes bilaterally, patient states he is due for his Symbicort. Rich, marvin and alil, will recheck hemoglobin CBC, CMP. Patient's hemoglobin is morning 6.9 and with patient's history prior ACS goal hemoglobin would be greater than 8. Hemoglobin is 7.3. Will transfuse 1 unit of blood. Patient would prefer discharge home as this is a chronic issue for him and he plans to follow-up with his doctor for hemoglobin recheck and further treatment. Feel this is reasonable patient's vital signs are stable. Undiagnosed new problem with uncertain prognosis? @ -[No] Drug Therapy requiring intensive monitoring for toxicity (Heparin, Nitro, Insulin, Cardizem)? @ -[No] Were any procedures done? @ -[No] Diagnosis/symptom? Acute on chronic anemia, hematuria Acute, or Chronic, or Acute on Chronic? Acute, acute on chronic Uncomplicated (without systemic symptoms) or Complicated (systemic symptoms)? @Complicated Side effects of treatment? @ -[No] Exacerbation, Progression, or Severe Exacerbation? @ -[No] Poses a threat to life or bodily function? How? (Chest pain, [place], [place], pneumonia, PE, COPD, DKA, ARF, appy, cholecystitis, CVA, Diverticulitis, Homicidal, Suicidal, threat to staff... and all critical care pts) @Yes, prior to discharge however after blood transfusion no - Lab Data Result diagrams: 02/08/24 22:59 02/08/24 22:59 Lab Results 01/04/2902/08/24 02/08/24 Range/Units 22:59 22:59 22:59 WBC 6.9 (3.8-10.6) k/uL RBC 2.50 L (4.30-5.90) m/uL Hgb 7.3 L (13.0-17.5) gm/dL Hct 22.6 L (39.0-53.0) % MCV 90.6 (80.0-100.0) fL MCH 29.1 (25.0-35.0) pg MCHC 32.1 (31.0-37.0) g/dL RDW 17.1 H (11.5-15.5) % Plt Count 198 (150-450) k/uL MPV 7.8 Neutrophils % 67 % Lymphocytes % 17 % Monocytes % 9 % Eosinophils % 3 % Basophils % 1 % Neutrophils # 4.7 (1.3-7.7) k/uL Lymphocytes # 1.2 (1.0-4.8) k/uL Monocytes # 0.6 (0-1.0) k/uL Eosinophils # 0.2 (0-0.7) k/uL Basophils # 0.1 (0-0.2) k/uL Hypochromasia Marked Poikilocytosis Slight Anisocytosis Slight PT 12.0 (10.0-12.5) sec INR 1.1 (<1.2) APTT 22.2 (22.0-30.0) sec Sodium 136 L (137-145) mmol/L Potassium 4.1 (3.5-5.1) mmol/L Chloride 103 (98-107) mmol/L Carbon Dioxide 22 (22-30) mmol/L Anion Gap 11 mmol/L BUN 20 (9-20) mg/dL Creatinine 1.03 (0.66-1.25) mg/dL Est GFR (CKD-EPI)AfAm 81 (>60 ml/min/1.73 sqM) Est GFR (CKD-EPI)NonAf 70 (>60 ml/min/1.73 sqM) Glucose 102 H (74-99) mg/dL Calcium 8.9 (8.4-10.2) mg/dL Total Bilirubin 0.7 (0.2-1.3) mg/dL AST 27 (17-59) U/L ALT 17 (4-49) U/L Alkaline Phosphatase 106 (38-126) U/L Total Protein 6.8 (6.3-8.2) g/dL Albumin 4.1 (3.5-5.0) g/dL Urine Color Urine Appearance (Clear) Urine pH (5.0-8.0) Ur Specific [place] (1.001-1.035) Urine Protein (Negative) Urine Glucose (UA) (Negative) Urine Ketones (Negative) Urine Blood (Negative) Urine Nitrite (Negative) Urine Bilirubin (Negative) Urine Urobilinogen (<2.0) mg/dL Ur Leukocyte Esterase (Negative) Urine RBC (0-5) /hpf Urine WBC (0-5) /hpf Blood Type Blood Type Recheck Bld Type Recheck Status Antibody Screen Crossmatch Spec Expiration Date 02/08/24 02/08/24 Range/Units 22:59 23:00 WBC (3.8-10.6) k/uL RBC (4.30-5.90) m/uL Hgb (13.0-17.5) gm/dL Hct (39.0-53.0) % MCV (80.0-100.0) fL MCH (25.0-35.0) pg MCHC (31.0-37.0) g/dL RDW (11.5-15.5) % Plt Count (150-450) k/uL MPV Neutrophils % % Lymphocytes % % Monocytes % % Eosinophils % % Basophils % % Neutrophils # (1.3-7.7) k/uL Lymphocytes # (1.0-4.8) k/uL Monocytes # (0-1.0) k/uL Eosinophils # (0-0.7) k/uL Basophils # (0-0.2) k/uL Hypochromasia Poikilocytosis Anisocytosis PT (10.0-12.5) sec INR (<1.2) APTT (22.0-30.0) sec Sodium (137-145) mmol/L Potassium (3.5-5.1) mmol/L Chloride (98-107) mmol/L Carbon Dioxide (22-30) mmol/L Anion Gap mmol/L BUN (9-20) mg/dL Creatinine (0.66-1.25) mg/dL Est GFR (CKD-EPI)AfAm (>60 ml/min/1.73 sqM) Est GFR (CKD-EPI)NonAf (>60 ml/min/1.73 sqM) Glucose (74-99) mg/dL Calcium (8.4-10.2) mg/dL Total Bilirubin (0.2-1.3) mg/dL AST (17-59) U/L ALT (4-49) U/L Alkaline Phosphatase (38-126) U/L Total Protein (6.3-8.2) g/dL Albumin (3.5-5.0) g/dL Urine Color Dark Red Urine Appearance Turbid (Clear) Urine pH 6.0 (5.0-8.0) Ur Specific [place] 1.018 (1.001-1.035) Urine Protein 2+ H (Negative) Urine Glucose (UA) Negative (Negative) Urine Ketones Negative (Negative) Urine Blood Large H (Negative) Urine Nitrite Negative (Negative) Urine Bilirubin Negative (Negative) Urine Urobilinogen <2.0 (<2.0) mg/dL Ur Leukocyte Esterase Small H (Negative) Urine RBC >182 H (0-5) /hpf Urine WBC 4 (0-5) /hpf Blood Type A Negative Blood Type Recheck A Neg Bld Type Recheck Status No Antibody Screen NEGATIVE Crossmatch See Detail Spec Expiration Date 02/11/20242299 Disposition Clinical Impression: Acute on chronic anemia, Hematuria Disposition: HOME SELF-CARE Condition: Good Instructions (If sedation given, give patient instructions): Blood Transfusion Reactions (ED), Hematuria (ED) Additional Instructions: Every disease is a spectrum and a small chance still exists that a serious condition could develop, for this reason, please monitor yourself closely for new, changing or worsening symptoms, symptoms that persist beyond 48 hours, fever, lightheadedness or dizziness, feel like you are to pass out or episodes of passing out, chest pain, new difficulty in breathing, worsening leg swelling inability to tolerate/keep down fluids or your medications, inability to follow up with outpatient providers as instructed and should you experience these symptoms or should you have any further concerns for your wellbeing please return to the ED or call 911 immediately. PLEASE call your primary care physician as soon as possible to arrange / discuss plan for followup appointment. Appointment in the next 1-3 days is strongly encouraged if possible. PLEASE let us know here before you leave if there is anything further we can do to be of any assistance. Take care and feel Better! Is patient prescribed a controlled substance at d/c from ED?: No Referrals: Junior August DO [Primary Care Provider] - 1-2 days
[2024-02-08 23:49] LABS: ALT 17 U/L (4-49); AST 27 U/L (17-59); African American GFR (CKD) 81 (>60 ml/min/1.73 sqM); Albumin 4.1 g/dL (3.5-5.0); Alkaline Phosphatase 106 U/L (38-126); Anion Gap 11 mmol/L; Blood Urea Nitrogen 20 mg/dL (9-20); Calcium 8.9 mg/dL (8.4-10.2); Carbon Dioxide 22 mmol/L (22-30); Chloride 103 mmol/L (98-107); Glucose 102 mg/dL (74-99); Non-African American GFR(CKD) 70 (>60 ml/min/1.73 sqM); Potassium 4.1 mmol/L (3.5-5.1); Sodium 136 mmol/L (137-145); Total Bilirubin 0.7 mg/dL (0.2-1.3); Total Protein 6.8 g/dL (6.3-8.2)
[2024-02-09 00:14] LABS: INR 1.1 (<1.2); Partial Thromboplastin Time 22.2 sec (22.0-30.0)
[2024-02-09 01:35] LABS: Appearance,Urine Turbid (Clear); Bilirubin,Urine Negative (Negative); Blood,Urine Large (Negative); Color,Urine Dark Red; Glucose,Urine (UA) Negative (Negative); Ketones,Urine Negative (Negative); Leukocyte Esterase,Urine Small (Negative); Nitrite,Urine Negative (Negative); Protein,Urine 2+ (Negative); RBC,Urine >182 /hpf (0-5); Urobilinogen,Urine <2.0 mg/dL (<2.0); WBC,Urine 4 /hpf (0-5)
[2024-02-09 01:49] LABS: Specific Gravity,Urine 1.018 (1.001-1.035)
[2024-02-09] MEDS: IPRATROPIUM-ALBUTEROL 3 ML NEB INHALATION STA (02:13)
[2024-02-09 04:35] VITALS: RESP 20
[2024-02-09 05:05] VITALS: BP 132/50; PULSE 82; TEMP 98.2
== END 2024-02-09 05:05 | disposition home or self-care (01) ==
LOC: EC 22:09
DX: D64.9 Anemia, unspecified (principal); N30.91 Cystitis, unspecified with hematuria; Z87.891 Personal history of nicotine dependence; Z95.1 Presence of aortocoronary bypass graft
CPT/HCPCS: 36415; 94640; 86900; 86901; 80053; 85025; 85610; 85730; 86850; 86920; 81001; 99284; 36430; P9016

== ENCOUNTER → 2024-02-08 | Outpatient (CLI) | payer MEDICARE ==
[2024-02-08 16:21] LABS: Basophils # (A) 0.05 X 10*3/uL (0.00-0.10); Basophils % (A) 0.7 %; Eosinophils # (A) 0.14 X 10*3/uL (0.04-0.35); Eosinophils % (A) 2.1 %; HCT 23.3 % (39.6-50.0); HGB 6.9 g/dL (13.0-17.0); Lymphocytes # (A) 1.14 X 10*3/uL (0.90-5.00); MCHC 29.6 g/dL (32.0-37.0); Mean Platelet Volume 10.2 FL (9.5-12.2); Monocytes # (A) 0.67 X 10*3/uL (0.20-1.00); NRBC Per 100 WBC 0.02 X 10*3/uL (0.00-0.01); Neutrophils # (A) 4.62 X 10*3/uL (1.80-7.70); Neutrophils % (A) 68.7 %; Platelet Count 204 X 10*3/uL (140-440); RBC 2.56 X 10*6/uL (4.40-5.60); RBC Morphology Normal (Normal); RDW 17.2 % (11.5-14.5); WBC 6.72 X 10*3/uL (4.50-10.00)
== END | disposition home or self-care (01) ==
LOC: LABWHC1 11:07
PROVIDERS: ATTEND Internal Medicine
DX: D64.9 Anemia, unspecified (principal)
CPT/HCPCS: 36415; 85025

== ENCOUNTER → 2024-02-14 | Outpatient (CLI) | payer MEDICARE ==
[2024-02-14 19:32] LABS: HCT 23.7 % (39.6-50.0); MCHC 29.5 g/dL (32.0-37.0); MCV 91.5 FL (80.0-97.0); Mean Platelet Volume 10.4 FL (9.5-12.2); NRBC Per 100 WBC 0.02 X 10*3/uL (0.00-0.01); Platelet Count 213 X 10*3/uL (140-440); RBC 2.59 X 10*6/uL (4.40-5.60); RDW 17.7 % (11.5-14.5)
[2024-02-14 19:33] LABS: Basophils # (A) 0.06 X 10*3/uL (0.00-0.10); Basophils % (A) 0.8 %; Eosinophils % (A) 2.7 %; Lymphocytes # (A) 1.19 X 10*3/uL (0.90-5.00); Lymphocytes % (A) 16.1 %; Monocytes # (A) 0.62 X 10*3/uL (0.20-1.00); Monocytes % (A) 8.4 %; Neutrophils # (A) 5.14 X 10*3/uL (1.80-7.70); Neutrophils % (A) 69.4 %
== END | disposition home or self-care (01) ==
LOC: LABWHC1 13:30
PROVIDERS: ATTEND Internal Medicine
DX: D64.9 Anemia, unspecified (principal)
CPT/HCPCS: 36415; 85025

== ENCOUNTER 2024-02-15 13:52 | Emergency (ER) | payer MEDICARE ==
[2024-02-15] MEDS: LIDOCAINE 2% URO-JET JELLY 5 ML KIT URETHRAL ONE (14:58)
--- NOTE | 2024-02-15 15:43 | ED ---
Male Urogenital HPI - General Source: patient, family, RN notes reviewed Mode of arrival: ambulatory Limitations: no limitations <Victorina Plummer - Last Filed: 02/15/24 20:00> <Parth Acosta - Last Filed: 02/15/24 22:26> - General Chief complaint: Urogenital Stated complaint: unable to urinate Time Seen by Provider: 02/15/24 15:41 - History of Present Illness Initial comments: 78-year-old male presenting for urinary retention. States he has not been able to urinate since 2 AM last night. States he has been passing blood clots in urine since November of last year and follows closely with oncologist at [facility]. 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 Due to the large amount of blood clots he is passing, patient routinely must undergo blood transfusions for anemia. Starting next week he is trialing hyperbaric oxygen therapy for radiatio cystitis. Patient presented at [facility] today for transfusion however was sent to the ER due to urinary retention. Patient is endorsing large amount of pressure in the suprapubic area. Patient states he has had several Rosales catheters placed for urinary retention in the past due to the blood clots. (Victorina Plummer) - Related Data Home Medications Medication Instructions Recorded Confirmed Albuterol Sulfate [Proair Hfa] 2 puff INHALATION RT-Q6H PRN 06/15/15 02/15/24 Aspirin EC [Ecotrin] 81 mg PO W/SUPPER 06/15/15 02/15/24 Atorvastatin [Lipitor] 40 mg PO HS 06/15/15 02/15/24 Beclomethasone Dipropionate [Qvar 1 puff INHALATION RT-HS 06/15/15 02/15/24 80 mcg/puff] Losartan Potassium [Cozaar] 25 mg PO QAM 06/15/15 02/15/24 Niacin 500 mg PO W/SUPPER 06/15/15 02/15/24 Sotalol [Betapace] 60 mg PO BID 06/15/15 02/15/24 Pantoprazole Sodium [Protonix] 20 mg PO Q48H 02/20/16 02/15/24 Ferrous Sulfate [Iron (65 MG 325 mg PO DAILY 02/15/24 02/15/24 Elemental)] Previous Rx's Medication Instructions Recorded Sulfamethox-Tmp 800-160Mg [Bactrim 1 tab PO Q12HR #10 tab 02/20/16 DS 800-160 mg] cefuroxime axetiL [Ceftin] 500 mg PO BID 7 Days #14 tab 05/01/23 oxyBUTYnin chloride [Ditropan] 5 mg PO BID #20 tab 05/01/23 Allergies Allergy/AdvReac Type Severity Reaction Status Date / Time No Known Allergies Allergy Verified 02/15/24 14:13 Review of Systems ROS Other: All systems not noted in ROS Statement are negative. <Victorina Plummer - Last Filed: 02/15/24 20:00> ROS Other: All systems not noted in ROS Statement are negative. <Parth Acosta - Last Filed: 02/15/24 22:26> ROS Statement: Those systems with pertinent positive or pertinent negative responses have been documented in the HPI. Past Medical History Past Medical History: Atrial Fibrillation, Asthma, Cancer, COPD, Hypertension, Prostate Disorder, Skin Disorder, Sleep Apnea/CPAP/BIPAP, Sleep Apnea/CPAP/BIPAP Additional Past Medical History / Comment(s): wound-ball area below great toe darwin ttom of rt foot, hx asbestosis, hx prostate cancer with surgery, chemo and radiation, current herniated disc back, cystitis History of Any Multi-Drug Resistant Organisms: None Reported Past Surgical History: Cardiac Ablation, Coronary Bypass/CABG, Heart Catheterization, Prostate Surgery Additional Past Surgical History / Comment(s): 2008 heart cath, cardiac ablation, quadruple cardiac bypass. Past Anesthesia/Blood Transfusion Reactions: No Reported Reaction Past Psychological History: No Psychological Hx Reported Smoking Status: Former smoker - Past Family History Mother Family Medical History: No Reported History Father Family Medical History: Cancer <Victorina Plummer - Last Filed: 02/15/24 20:00> General Exam Limitations: no limitations General appearance: alert, in no apparent distress Head exam: Present: atraumatic, normocephalic, normal inspection GI/Abdominal exam: Present: soft, normal bowel sounds. Absent: distended, tenderness, guarding, rebound, rigid Neurological exam: Present: alert, oriented X3 Psychiatric exam: Present: normal affect, normal mood Skin exam: Present: warm, dry, intact, normal color. Absent: rash <Victorina Plummer - Last Filed: 02/15/24 20:00> Course Vital Signs 02/15/24 02/15/24 02/15/24 14:13 15:44 18:45 Temperature 97.7 F 98.0 F Pulse Rate 116 H 95 81 Respiratory 20 18 20 Rate Blood Pressure 127/66 104/58 135/62 O2 Sat by Pulse 99 95 93 L Oximetry 02/15/24 02/15/24 02/15/24 18:55 19:15 20:27 Temperature 97.9 F 98.2 F Pulse Rate 104 H 113 H 96 Respiratory 22 18 18 Rate Blood Pressure 133/66 136/82 139/113 O2 Sat by Pulse 97 96 Oximetry 02/15/24 21:33 Temperature 98.1 F Pulse Rate 83 Respiratory 18 Rate Blood Pressure 128/63 O2 Sat by Pulse 95 Oximetry Procedures - Catheter Insertion (Urinary) Indications: to alleviate urinary retention Preparation: Povidone-Iodine Type of Catheter Inserted: 3 way Catheter Romansh Size: 22 Catheter Balloon Size (mLs): 30 Topical Anesthesia Used: Yes Results: successfully catheterized-immediate flow Patient Tolerated Procedure: well, no complications Complications: none <Parth Acosta - Last Filed: 02/15/24 22:26> Medical Decision Making - Lab Data Result diagrams: 02/15/24 15:43 02/15/24 15:43 <Victorina Plummer - Last Filed: 02/15/24 20:00> - Lab Data Result diagrams: 02/15/24 15:43 02/15/24 15:43 <Parth Acosta - Last Filed: 02/15/24 22:26> - Medical Decision Making Was pt. sent in by a medical professional or institution (, PA, PRODUCTION CONTROL SUPERVISOR, urgent care, hospital, or penitentiary...) When possible be specific @ -[facility] Rosales [facility] Did you speak to anyone other than the patient for history (EMS, parent, family, police, friend...)? What history was obtained from this source @ - supplemented history Did you review nursing and triage notes (agree or disagree)? Why? @ -I reviewed and agree with nursing and triage notes Were old charts reviewed (outside hosp., previous admission, EMS record, old EKG, old radiological studies, urgent care reports/EKG's, penitentiary records)? Report findings @ -No old charts were reviewed Differential Diagnosis (chest pain, altered mental status, abdominal pain women, abdominal pain men, vaginal bleeding, weakness, fever, dyspnea, syncope, headache, dizziness, GI bleed, back pain, seizure, CVA, palpatations, mental health, musculoskeletal)? @ -Not applicable EKG interpreted by me (3pts min.). @ -None X-rays interpreted by me (1pt min.). @ -None done CT interpreted by me (1pt min.). @ -None done U/S interpreted by me (1pt. min.). @ -None done What testing was considered but not performed or refused? (CT, X-rays, U/S, labs)? Why? @ -None What meds were considered but not given or refused? Why? @ -None Did you discuss the management of the patient with other professionals (professionals i.e. , PA, PRODUCTION CONTROL SUPERVISOR, lab, RT, psych nurse, social media designer, environmental health nurse, teacher, assistant chief nursing officer, machine adjuster leader case trim)? Give summary @ -No Was smoking cessation discussed for >3mins.? @ -No Was critical care preformed (if so, how long)? @ -No Were there social determinants of health that impacted care today? How? (Homelessness, low income, unemployed, alcoholism, drug addiction, transportation, low edu. Level, literacy, decrease access to med. care, usp, rehab)? @ -No Was there de-escalation of care discussed even if they declined (Discuss DNR or withdrawal of care, Hospice)? DNR status @ -No What co-morbidities impacted this encounter? (DM, HTN, Smoking, COPD, CAD, Cancer, CVA, ARF, Chemo, Hep., AIDS, mental health diagnosis, sleep apnea, morbid obesity)? @ -None Was patient admitted / discharged? Hospital course, mention meds given and route, prescriptions, significant lab abnormalities, going to OR and other pertinent info. @ -Discharge. This is a 78-year-old male presenting to the ER for urinary retention. States he has not been able to urinate since 2 AM last night. Patient frequently undergoes blood transfusions for hematuria due to weakened blood vessels. Rosales catheter was placed with minimal drainage of dark, opaque red blood. Hemoglobin is 7.1. Patient is provided with 1 unit of red blood cells. Rosales catheter irrigated to remove blood clots and for proper drainage of Rosales and resolution of symptoms. Patient will be discharged with Rosales catheter with close outpatient follow-up. Appropriate return precautions discussed. Patient and are agreeable to this plan. Case was discussed with my ED attending Dr. Acosta. Undiagnosed new problem with uncertain prognosis? @ -No Drug Therapy requiring intensive monitoring for toxicity (Heparin, Nitro, Insulin, Cardizem)? @ -No Were any procedures done? @ -No Diagnosis/symptom? @ -Urinary retention Acute, or Chronic, or Acute on Chronic? @ -Acute Uncomplicated (without systemic symptoms) or Complicated (systemic symptoms)? @ -Uncomplicated Side effects of treatment? @ -No Exacerbation, Progression, or Severe Exacerbation? @ -No Poses a threat to life or bodily function? How? (Chest pain, USA, CT, pneumonia, PE, COPD, DKA, ARF, appy, cholecystitis, CVA, Diverticulitis, Homicidal, Suicidal, threat to staff... and all critical care pts) @ -Not at this time (Victorina Plummer) I was called to see the patient because of increasing symptoms of urinary ret ention. The patient was having severe suprapubic pain, he was not having any new drainage from the Rosales catheter. I did flush once with 50 cc of saline and was not able to obtain any return. In light of this, I changed the catheter myself, see the note. There was immediate return of clear pink-tinged urine and the patient did begin to have relief of symptoms. (Parth Acosta) - Lab Data Lab Results 02/15/24 02/15/24 02/15/24 Range/Units 12:15 15:43 15:43 WBC 8.2 (3.8-10.6) k/uL RBC 2.55 L (4.30-5.90) m/uL Hgb 7.1 L (13.0-17.5) gm/dL Hct 22.8 L (39.0-53.0) % MCV 89.3 (80.0-100.0) fL MCH 27.8 (25.0-35.0) pg MCHC 31.1 (31.0-37.0) g/dL RDW 18.5 H (11.5-15.5) % Plt Count 230 (150-450) k/uL MPV 7.8 Neutrophils % 75 % Lymphocytes % 13 % Monocytes % 8 % Eosinophils % 2 % Basophils % 1 % Neutrophils # 6.2 (1.3-7.7) k/uL Lymphocytes # 1.0 (1.0-4.8) k/uL Monocytes # 0.7 (0-1.0) k/uL Eosinophils # 0.1 (0-0.7) k/uL Basophils # 0.0 (0-0.2) k/uL Hypochromasia Marked Poikilocytosis Moderate Anisocytosis Slight Sodium 140 (137-145) mmol/L Potassium 4.4 (3.5-5.1) mmol/L Chloride 106 (98-107) mmol/L Carbon Dioxide 21 L (22-30) mmol/L Anion Gap 13 mmol/L BUN 22 H (9-20) mg/dL Creatinine 1.14 (0.66-1.25) mg/dL Est GFR (CKD-EPI)AfAm 72 (>60 ml/min/1.73 sqM) Est GFR (CKD-EPI)NonAf 62 (>60 ml/min/1.73 sqM) Glucose 99 (74-99) mg/dL Calcium 9.2 (8.4-10.2) mg/dL Total Bilirubin 1.0 (0.2-1.3) mg/dL AST 27 (17-59) U/L ALT 16 (4-49) U/L Alkaline Phosphatase 101 (38-126) U/L Total Protein 6.9 (6.3-8.2) g/dL Albumin 4.2 (3.5-5.0) g/dL Blood Type A Negative Blood Type Recheck A Neg Bld Type Recheck Status No Antibody Screen POSITIVE Antibody Identification Anti-Jka Antigen Identification Jka Antigen - NEGATIVE Direct Antiglob Test Negative Crossmatch See Detail Spec Expiration Date 02/18/2024 - 5031 02/15/24 Range/Units 16:44 WBC (3.8-10.6) k/uL RBC (4.30-5.90) m/uL Hgb (13.0-17.5) gm/dL Hct (39.0-53.0) % MCV (80.0-100.0) fL MCH (25.0-35.0) pg MCHC (31.0-37.0) g/dL RDW (11.5-15.5) % Plt Count (150-450) k/uL MPV Neutrophils % % Lymphocytes % % Monocytes % % Eosinophils % % Basophils % % Neutrophils # (1.3-7.7) k/uL Lymphocytes # (1.0-4.8) k/uL Monocytes # (0-1.0) k/uL Eosinophils # (0-0.7) k/uL Basophils # (0-0.2) k/uL Hypochromasia Poikilocytosis Anisocytosis Sodium (137-145) mmol/L Potassium (3.5-5.1) mmol/L Chloride (98-107) mmol/L Carbon Dioxide (22-30) mmol/L Anion Gap mmol/L BUN (9-20) mg/dL Creatinine (0.66-1.25) mg/dL Est GFR (CKD-EPI)AfAm (>60 ml/min/1.73 sqM) Est GFR (CKD-EPI)NonAf (>60 ml/min/1.73 sqM) Glucose (74-99) mg/dL Calcium (8.4-10.2) mg/dL Total Bilirubin (0.2-1.3) mg/dL AST (17-59) U/L ALT (4-49) U/L Alkaline Phosphatase (38-126) U/L Total Protein (6.3-8.2) g/dL Albumin (3.5-5.0) g/dL Blood Type Blood Type Recheck Bld Type Recheck Status Antibody Screen Antibody Identification Antigen Identification Direct Antiglob Test Crossmatch See Detail Spec Expiration Date Disposition Is patient prescribed a controlled substance at d/c from ED?: No Time of Disposition: 19:59 <Victorina Plummer - Last Filed: 02/15/24 20:00> Is patient prescribed a controlled substance at d/c from ED?: No <Parth Acosta - Last Filed: 02/15/24 22:26> Clinical Impression: Urinary retention, Anemia Disposition: HOME SELF-CARE Condition: Stable Instructions (If sedation given, give patient instructions): Urinary Retention in Men (ED) Additional Instructions: Follow-up with urologist for Rosales catheter removal next week. Please return to the Emergency Department if symptoms worsen or any other concerns. Referrals: Ollie Garsia, [Primary Care Provider] - 1-2 days Zain Woodard MD [STAFF PHYSICIAN] - 1-2 days
[2024-02-15 16:12] LABS: ALT 16 U/L (4-49); AST 27 U/L (17-59); African American GFR (CKD) 72 (>60 ml/min/1.73 sqM); Albumin 4.2 g/dL (3.5-5.0); Alkaline Phosphatase 101 U/L (38-126); Anion Gap 13 mmol/L; Blood Urea Nitrogen 22 mg/dL (9-20); Calcium 9.2 mg/dL (8.4-10.2); Carbon Dioxide 21 mmol/L (22-30); Chloride 106 mmol/L (98-107); Glucose 99 mg/dL (74-99); Non-African American GFR(CKD) 62 (>60 ml/min/1.73 sqM); Potassium 4.4 mmol/L (3.5-5.1); Sodium 140 mmol/L (137-145); Total Protein 6.9 g/dL (6.3-8.2)
[2024-02-15 16:17] LABS: Anisocytosis Slight; Basophils % (A) 1 %; Eosinophils # (A) 0.1 k/uL (0-0.7); Eosinophils % (A) 2 %; HCT 22.8 % (39.0-53.0); HGB 7.1 gm/dL (13.0-17.5); Hypochromasia Marked; Lymphocytes % (A) 13 %; MCH 27.8 pg (25.0-35.0); MCHC 31.1 g/dL (31.0-37.0); MCV 89.3 fL (80.0-100.0); Mean Platelet Volume 7.8; Monocytes # (A) 0.7 k/uL (0-1.0); Monocytes % (A) 8 %; Neutrophils # (A) 6.2 k/uL (1.3-7.7); Neutrophils % (A) 75 %; Platelet Count 230 k/uL (150-450); Poikilocytosis Moderate; RBC 2.55 m/uL (4.30-5.90); RDW 18.5 % (11.5-15.5); WBC 8.2 k/uL (3.8-10.6)
[2024-02-15 19:26] VITALS: RESP 18
[2024-02-15 21:35] VITALS: TEMP 98.1
[2024-02-15 23:00] VITALS: BP 128/76; PULSE 82
== END 2024-02-15 22:55 | disposition home or self-care (01) ==
LOC: EC 13:52
DX: R33.9 Retention of urine, unspecified (principal); D64.9 Anemia, unspecified; Z87.891 Personal history of nicotine dependence
CPT/HCPCS: 99284; 51702; 36430; 51798; 36415; 86900; 86901; 86902; 80053; 85025; 86850; 86920; 86870; 86880; P9016

== ENCOUNTER → 2024-02-20 | Outpatient (CLI) | payer MEDICARE ==
[2024-02-20 19:32] LABS: Basophils # (A) 0.05 X 10*3/uL (0.00-0.10); Basophils % (A) 0.6 %; Eosinophils # (A) 0.26 X 10*3/uL (0.04-0.35); Eosinophils % (A) 3.1 %; HCT 24.2 % (39.6-50.0); HGB 6.9 g/dL (13.0-17.0); Lymphocytes # (A) 1.13 X 10*3/uL (0.90-5.00); Lymphocytes % (A) 13.5 %; MCHC 28.5 g/dL (32.0-37.0); MCV 94.5 FL (80.0-97.0); Mean Platelet Volume 10.3 FL (9.5-12.2); Monocytes # (A) 0.84 X 10*3/uL (0.20-1.00); NRBC Per 100 WBC 0 X 10*3/uL (0.00-0.01); Neutrophils # (A) 5.96 X 10*3/uL (1.80-7.70); Neutrophils % (A) 71.1 %; Platelet Count 224 X 10*3/uL (140-440); RBC 2.56 X 10*6/uL (4.40-5.60); RDW 18.6 % (11.5-14.5); WBC 8.38 X 10*3/uL (4.50-10.00)
== END | disposition home or self-care (01) ==
LOC: LABWHC1 13:12
PROVIDERS: ATTEND Internal Medicine
DX: D64.9 Anemia, unspecified (principal)
CPT/HCPCS: 36415; 85025; 86850; 86870; 86880; 86900; 86901

== ENCOUNTER → 2024-02-29 | Outpatient (CLI) | payer MEDICARE ==
[2024-02-29 20:19] LABS: Basophils # (A) 0.05 X 10*3/uL (0.00-0.10); Basophils % (A) 0.7 %; Eosinophils # (A) 0.18 X 10*3/uL (0.04-0.35); Eosinophils % (A) 2.6 %; HGB 8.1 g/dL (13.0-17.0); Lymphocytes # (A) 1.19 X 10*3/uL (0.90-5.00); Lymphocytes % (A) 17.1 %; MCH 27.4 pg (27.0-32.0); MCHC 28.9 g/dL (32.0-37.0); MCV 94.6 FL (80.0-97.0); Mean Platelet Volume 10.2 FL (9.5-12.2); Monocytes # (A) 0.67 X 10*3/uL (0.20-1.00); Monocytes % (A) 9.6 %; NRBC Per 100 WBC 0 X 10*3/uL (0.00-0.01); Neutrophils # (A) 4.72 X 10*3/uL (1.80-7.70); Platelet Count 242 X 10*3/uL (140-440); RBC 2.96 X 10*6/uL (4.40-5.60); RDW 18.1 % (11.5-14.5); WBC 6.95 X 10*3/uL (4.50-10.00)
[2024-02-29 21:01] LABS: % Iron Saturation 11.99 (15.00-50.00); Blood Urea Nitrogen 20.5 mg/dL (9.0-27.0); Calcium 9.1 mg/dL (8.7-10.3); Carbon Dioxide 20.8 mmol/L (21.6-31.8); Chloride 108 mmol/L (96-109); Ferritin 28.9 ng/mL (22.0-322.0); Glucose 127 mg/dL (70-110); Iron 50 UG/DL (65-175); Potassium 4.3 mmol/L (3.5-5.5); Sodium 143 mmol/L (135-145); Total Iron Binding Capacity 417 UG/DL (228-460)
== END | disposition home or self-care (01) ==
LOC: LABWHC1 14:08
PROVIDERS: ATTEND Internal Medicine
DX: D64.9 Anemia, unspecified (principal)
CPT/HCPCS: 36415; 80048; 82728; 83540; 83550; 85025